=== PATIENT | male | born 1990 | race Caucasian/White ===

== ENCOUNTER 2018-07-10 19:14 | Emergency (ER) | payer OTHER, SELFPAY ==
[2018-07-10 19:46] VITALS: BP 114/75; PULSE 72; RESP 18; TEMP 36.6; O2SAT 100; BMI 21.4
[2018-07-10 21:14] VITALS: BP 113/71; PULSE 77; RESP 16; O2SAT 99
--- NOTE | 2018-07-10 21:35 | ED_ITS ---
HPI - Animal Bite <MARSHA Tan - Last Filed: 07/10/18 22:02> General Chief Complaint: Animal Bite Stated Complaint: dog bite right ankle Time Seen by Provider: 07/10/18 21:03 Source: patient Mode of arrival: ambulatory Limitations: no limitations History of Present Illness HPI narrative: 27-year-old healthy male that is an everyday smoker here for complaint of a dog bite to his right ankle area. 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 He reports he does not know the status of the dog. He states he does not know when his last tetanus was. He denies any other injuries. He stated the incident happened this afternoon. He is ambulatory to the emergency room. No other concerns or complaints at this time. complaint: animal bite Related Data Home Medications Medication Instructions Recorded Confirmed omeprazole magnesium [Prilosec OTC] #0 11/07/17 Previous Rx's Medication Instructions Recorded mupirocin 1 applictn TOP TID #15 gram 07/10/18 Review of Systems <MARSHA Tan - Last Filed: 07/10/18 22:02> Constitutional Denies chills, Denies fever(s), Denies lethargy and Denies weakness Eyes Denies change in vision, Denies eye discharge, Denies irritation and Denies loss of vision ENT Ears, Nose, Mouth, and Throat: Denies change in voice, Denies neck pain and Denies sore throat Cardiovascular Denies chest pain, Denies irregular heart rhythm, Denies lightheadedness, Denies palpitations, Denies dyspnea, Denies dyspnea on exertion and Denies orthopnea Respiratory Denies cough, Denies dyspnea, Denies dyspnea on exertion and Denies wheezing Gastrointestinal Gastrointestinal: Denies abdominal pain, Denies change in bowel habits, Denies diarrhea, Denies nausea and Denies vomiting Genitourinary Denies hematuria, Denies flank pain, Denies urinary incontinence and Denies urinary urgency Musculoskeletal Denies neck pain Comments: Dog bite right ankle Integumentary/Breasts Denies pruritus, Denies erythema, Denies rash and Denies wounds Neurologic Denies confusion, Denies loss of vision and Denies weakness Psychiatric Denies anxiety, Denies confusion, Denies depression, Denies homicidal ideation and Denies suicidal ideation Endocrine Denies palpitations Hematologic/Lymphatic Denies easy bruising Allergic/Immunologic Denies wheezing Exam <MARSHA Tan - Last Filed: 07/10/18 22:02> Initial Vital Signs Initial Vital Signs: Vital Signs Temperature 97.9 F 07/10/18 19:46 Pulse Rate 72 07/10/18 19:46 Respiratory Rate 18 07/10/18 19:46 Blood Pressure 114/75 07/10/18 19:46 Pulse Oximetry 100 07/10/18 19:46 Const General: cooperative and well developed Nutritional Appearance: well nourished Orientation: alert, awake, oriented x3 and not confused [facility] Mouth: oral mucosae normal and moist mucous membranes Eyes Eyelids: eyelids normal Conjunctivae: conjunctivae normal Sclera: sclerae normal Pupils: PERRL EOM: EOM intact bilaterally Resp Effort & Inspection: normal respiratory effort, able to speak in complete sentences, no respiratory distress and no use of accessory muscles Auscultation: clear to auscultation bilaterally, no rales, no rhonchi and no wheezes Cardio Rate: regular rate Rhythm: regular rhythm Heart Sounds: no click, no gallops, no murmurs and no rubs Pulses: normal peripheral pulses Skin General: no rashes or lesions noted, No jaundice and No petechiae Neuro General: alert, oriented x3, gait normal and no focal motor deficits Speech: speech normal Extrem Other: Superficial scrapes over a 2 cm area to the distal lateral right lower leg. Distal sensation is intact. Distal range of motion is intact. Distal pulses intact. No deep punctures seen <Gali Malave DO - Last Filed: 07/11/18 03:03> Initial Vital Signs Initial Vital Signs: Vital Signs Temperature 97.9 F 07/10/18 19:46 Pulse Rate 72 07/10/18 19:46 Respiratory Rate 18 07/10/18 19:46 Blood Pressure 114/75 07/10/18 19:46 Pulse Oximetry 100 07/10/18 19:46 Course <MARSHA Tan - Last Filed: 07/10/18 22:02> Orders Ordered: Discontinued Medications Diphtheria/Tetanus/Acell Pertussis (Adacel) 0.5 ml IM .ONCE ONE Stop: 07/10/18 21:29 Last Admin: 07/10/18 21:45 Dose: 0.5 ml Vital Signs - 8 hr 07/10/18 19:46 07/10/18 21:14 Temperature 97.9 F Pulse Rate 72 77 Respiratory Rate 18 16 Blood Pressure 114/75 Blood Pressure [Right Arm] 113/71 Pulse Oximetry 100 99 <Gali Malave DO - Last Filed: 07/11/18 03:03> Orders Ordered: Discontinued Medications Diphtheria/Tetanus/Acell Pertussis (Adacel) 0.5 ml IM .ONCE ONE Stop: 07/10/18 21:29 Last Admin: 07/10/18 21:45 Dose: 0.5 ml Vital Signs - 8 hr 07/10/18 19:46 07/10/18 21:14 Temperature 97.9 F Pulse Rate 72 77 Respiratory Rate 18 16 Blood Pressure 114/75 Blood Pressure [Right Arm] 113/71 Pulse Oximetry 100 99 MDM - Animal Bite <MARSHA Tan - Last Filed: 07/10/18 22:02> MDM Narrative Medical decision making narrative: Superficial wounds to right ankle area were cleansed and dressed with bacitracin dressing. He is prescribed mupirocin to treat topically until wounds heal. Follow up with primary care provider next week for re-evaluation. Tetanus was updated in the emergency room today. Dress wound daily with a dressing. Return emergency room for any worsening symptoms. Discharge Plan Departure Patient Disposition: Home Clinical Impression: Dog bite Discharge Date/Time: 07/10/18 22:00 Interventions: ED Discharge Assessment Last Done: 07/10/18 22:23 Instructions: DI for Dog Bite Activity Restrictions/Additional Instructions: Superficial wounds to the right ankle area. Wound dressed with antibiotic ointment and dressing. . You are prescribed an antibiotic ointment called mupirocin use as directed. Dress wound daily with dressing until healed. Use antibiotic ointment until healed. Follow up with her primary care provider next week for re-evaluation. Tetanus was updated in the emergency room today. Use [id number] Tylenol or Motrin as needed for any discomfort. For any worsening symptoms return to the emergency room. Prescriptions: New mupirocin 2 % ointment 1 applictn TOP TID Qty: 15 RF: 0 No Action omeprazole magnesium [Prilosec OTC] 20 MG tablet,delayed release (DR/EC) Qty: 0 RF: 0 Referrals: Stephen Oneill MD [Primary Care Provider] - <Gali Malave DO - Last Filed: 07/11/18 03:03> Cosign ED Attending [place] Attestation: I was immediately available in the department for consultation. Documentation has been reviewed. I agree with assessment and plan.
[2018-07-10] MEDS: TET,DIPH,PERTUSS(ACELL),VAC/PF 0.5 ML SYRINGE IM (21:45)
== END 2018-07-10 22:00 | disposition home or self-care (01) ==
PROVIDERS: Emergency Provider Nurse Practitioner Family; Family Provider Family Medicine; PCP Family Medicine
DX: S91.051A Open bite, right ankle, initial encounter (principal); W54.0XXA Bitten by dog, initial encounter
CPT/HCPCS: 90471; 99283; 90715

== ENCOUNTER → 2020-05-13 15:05 | Outpatient (CLI) | payer OTHER, SELFPAY ==
--- NOTE | 2020-05-13 15:07 | DI.RAD.S_ITS ---
PROCEDURE: XR KNEE RT 3V INDICATIONS: Pain TECHNIQUE: 3 views of the knee were acquired. COMPARISON: None. FINDINGS: Bones: No fractures or dislocations. No suspicious bony lesions. Soft tissues: No joint effusion. No suspicious soft tissue calcifications. There may be soft tissue swelling at the ventral margin of the prepatellar soft tissues, but it is unclear from the history whether trauma is present. This could conceivably represent a manifestation of focal cellulitis. Please correlate clinically. IMPRESSION: No trauma found, to the osseous structures. There may be soft tissue swelling at the anterior border of the patella, please correlate clinically. Dictated by: Ravi Teresa M.D. on 05/13/2020 at 16:26 Approved by: Ravi Teresa M.D. on 05/13/2020 at 16:27
== END ==
PROVIDERS: Family Provider Family Medicine; PCP Family Medicine; Referring Provider Family Medicine; Visit Provider Family Medicine
DX: M25.561 Pain in right knee (principal); M22.2X1 Patellofemoral disorders, right knee
CPT/HCPCS: 73562

== ENCOUNTER 2020-12-29 17:03 | Emergency (ER) | payer OTHER, SELFPAY ==
[2020-12-29 17:07] VITALS: PULSE 74; RESP 16; O2SAT 100; BMI 20.7
--- NOTE | 2020-12-29 17:12 | DI.RAD.S_ITS ---
PROCEDURE: XR CHEST 1V INDICATIONS: chest pain TECHNIQUE: One view of the chest was acquired. COMPARISON: [facility], , CHEST 2 VIEW, 04/11/2016, 14:52. FINDINGS: Surgical changes and devices: None. Lungs and pleura: Lungs are clear. No pleural effusions or pneumothorax. Mediastinum: Mediastinal contours appear normal. Heart size is normal. Bones and chest wall: No suspicious bony lesions. Overlying soft tissues appear unremarkable. IMPRESSION: No acute cardiopulmonary abnormalities or focal airspace disease. There are no imaging findings to explain patient's chest pain. Dictated by: Job Sullivan M.D. on 12/29/2020 at 17:41 Approved by: Job Sullivan M.D. on 12/29/2020 at 17:43
--- NOTE | 2020-12-29 17:13 | PC.NURSE ---
Took tums with no relief. Reports some dizziness.
[2020-12-29 17:30] LABS: Add Manual Diff / Slide Review NO; Basophils Absolute Auto 100 /uL (0-100); Basophils Percent Auto 1.3 % (0-2); Eosinophils Absolute Auto 100 /uL (0-450); Eosinophils Percent Auto 1.1 % (2-4); Hematocrit 42.9 % (41-53); Hemoglobin 14.7 g/dL (13.5-17.5); Lymphocytes Absolute Auto 1900 /uL (1100-4500); Lymphocytes Percent Auto 31.5 % (25-40); Mean Corpuscular HGB Conc 34.2 % (30-36); Mean Corpuscular Hemoglobin 29.1 PG (26-34); Mean Corpuscular Volume 85.1 fL (80-100); Monocytes Absolute Auto 400 /uL (0-900); Monocytes Percent Auto 6.8 % (3-14); Neutrophils Absolute Auto 3600 /uL (1500-7000); Neutrophils Percent Auto 59.3 % (50-75); Platelet Count 225 X10^3/uL (150-400); Red Blood Cell Count 5.04 X10^6/uL (4.5-5.9); Red Cell Distribution Width 13.2 % (11.6-14.8); White Blood Cell Count 6.1 X10^3/uL (4.5-11.0)
[2020-12-29 17:37] LABS: Prothrombin Time 10.7 SECONDS (10.1-12.7)
[2020-12-29 17:39] LABS: PTT Partial Thromboplastin Tim 32 SECONDS (26.4-36.2)
[2020-12-29 17:41] LABS: Alanine Aminotransferase 17 IU/L (<50); Albumin 4.7 g/dL (3.5-5.0); Albumin Globulin Ratio 1.6 (1.0-2.8); Alkaline Phosphatase 51 U/L (38-126); Aspartate Aminotransferase 24 IU/L (17-59); BUN Creatinine Ratio 17.1 (6-22); Bilirubin Total 0.4 mg/dL (0.2-1.3); Blood Urea Nitrogen 13 mg/dL (9-20); Calcium 9.4 mg/dL (8.4-10.2); Carbon Dioxide 28 mmol/L (22-32); Chloride 105 mmol/L (98-107); Creatine Kinase 90 U/L (55-170); Estimated Glomerular Filt Rate > 60.0 mL/min (>60); Globulin 2.9 g/dL (1.7-4.1); Glucose 167 mg/dL (70-100); HEMOLYSIS < 15 (0-50); Lipase 85 U/L (23-300); Potassium 3.7 mmol/L (3.4-5.1); Sodium 138 mmol/L (137-145); Total Protein 7.6 g/dL (6.3-8.2)
--- NOTE | 2020-12-29 17:50 | ED.CHESTPAIN ---
HPI - Chest Pain <Layla Peralta PA-C - Last Filed: 12/29/20 20:26> General Chief Complaint: Chest Pain Stated Complaint: chest pain off and on today, lightheaded Time Seen by Provider: 12/29/20 17:11 Source: patient Mode of arrival: Ambulatory Limitations: no limitations History of Present Illness HPI narrative: This is a well-appearing 30-year-old who reports a history of chronic abdominal pains and recent anxiety diagnosis. 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 He states he has actually been having chest pains on and off for short periods of time that feel like a tightness in the center of his chest for the last few months. Nothing seems to make them worse, make them better or bring them on. A couple of days ago he had pain on the left side of his chest that felt more like a dull ache which lasted about half the day. This was concerning to him and today when he started having the tightness in his chest he decided he should probably seek care. Earlier today when the pain started he was also feeling somewhat short of breath although he does not feel short of breath anymore. He also felt a little bit lightheaded. He also felt like his heart was going quickly. He endorses 2 or 3/10 tight chest pain in the center of his chest currently but states it was more painful earlier and it has improved. He states that he has been taking gabapentin for anxiety for the past month and that he was recently prescribed a new anxiety medicine after telemedicine visit but he has not yet picked it up because a prescription just became available. He states that he has ?a high level of stress. He states he has been eating and drinking normally denies any fevers, chills, abdominal pain, flank pain, neck pain, headache, ongoing palpitations, or any other symptoms. MD complaint: chest pain Onset (ago): hour(s) (4) Duration: improved Onset: other (while driving mail truck) Pain location: other (mid chest, tightness) Severity: similar to previous episodes Severity scale (1-10): 2 Quality: tightness Pain radiation: none Relieving factors: nothing and other (has improved with time) Exacerbating factors: nothing Context: new medications (gabapentin for last month) and other (supposed to start another anxiety med) Associated symptoms: dyspnea (brief, resolved) Treatments prior to arrival chest pain: other (tums) Related Data Previous Rx's Medication Instructions Recorded prednisone 20 mg tablet 20 mg PO DAILY #21 tab 07/27/20 diazepam 5 mg tablet 5 mg PO ONCE PRN #4 tab 12/22/20 Allergies Allergy/AdvReac Type Severity Reaction Status Date / Time No Known Drug Allergies Allergy Verified 12/29/20 17:10 Review of Systems <Layla Peralta PA-C - Last Filed: 12/29/20 20:26> Review of Systems Narrative: GENERAL: Denies chills, fatigue, malaise, fever, sweats. HEENT: Denies sinus pain, ear pain, sore throat, difficulty swallowing, dizziness. RESPIRATORY: Denies dyspnea, cough, wheezing, hemoptysis, sputum. CARDIOVASCULAR: Endorses chest pain, palpitations, denies orthopnea, edema, GASTROINTESTINAL: Denies nausea, vomiting, abdominal pain, diarrhea, constipation, melena. : Denies dysuria, frequency, incontinence, hematuria, urinary retention. MUSCULOSKELETAL: denies weakness, joint pain, or bony pain SKIN: Denies rash, skin lesions, or other NEUROLOGIC: Denies weakness, headache, numbness, change in speech, confusion, seizures, incoordination, endorses lightheadedness earlier today associated with his chest pain starting. PSYCHIATRIC: No concerning psychosocial issues. 12 point review of systems is negative except for those stated above ROS Unobtainable: All systems reviewed & are unremarkable except as noted in HPI and below Patient History <Layla Peralta PA-C - Last Filed: 12/29/20 20:26> Medical History Dermatitis Social History Smoking Status: Former smoker Smoking Status: Former smoker alcohol intake frequency: holidays/special occasions only Substance Use Type: does not use Exam <Layla Peralta PA-C - Last Filed: 12/29/20 20:26> Narrative Exam Narrative: GENERAL: 30 year old patient appears stated age. 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 HEAD: Atraumatic. Normocephalic. EYES: Pupils equal round and reactive. Extraocular motions intact. No scleral icterus. No injection or drainage. ENT: Nose without bleeding, purulent drainage. Throat without erythema, tonsillar hypertrophy or exudate. Airway patent. NECK: Trachea midline. Non tender CARDIOVASCULAR: Regular rate and rhythm without murmurs, gallops, or rubs. RESPIRATORY: Clear to auscultation. Breath sounds equal bilaterally. No wheezes, rales, or rhonchi. GASTROINTESTINAL: Abdomen soft, non-tender, nondistended. EXTREMITIES: No edema or joint tenderness. Abrasions to knuckles of both hands. BACK: Nontender without deformity or crepitance. No flank tenderness. NEURO: AOx3. SKIN: No rash or erythema of visible areas Initial Vital Signs Initial Vital Signs: Vital Signs Pulse Rate 74 12/29/20 17:07 Respiratory Rate 16 12/29/20 17:07 Pulse Oximetry 100 12/29/20 17:07 <Dong Asencio DO - Last Filed: 01/02/21 18:05> Initial Vital Signs Initial Vital Signs: Vital Signs Pulse Rate 74 12/29/20 17:07 Respiratory Rate 16 12/29/20 17:07 Pulse Oximetry 100 12/29/20 17:07 Scores <Layla Peralta PA-C - Last Filed: 12/29/20 20:26> GCS Srinivasan coma scale eye opening: Spontaneous Pilot coma scale verbal response: Orientated Srinivasan coma scale motor response: Obey commands Srinivasan coma scale total score: 15 HEART Score Heart Score history: Slightly Suspicious Heart Score EKG: Normal Heart Score Age: < 45 years old Heart Score risk factors: No known risk factors Heart Score troponin: < or = to normal limit Heart Score Total: 0 Course <Layla Peralta PA-C - Last Filed: 12/29/20 20:26> Course Course Narrative: Patient has unremarkable labs including cardiac enzymes. His pain started around 1 this afternoon so had been at least 3 hours. He also had been having pain 2 days prior that lasted half a day. I would expect his troponin to be elevated if this were related to a cardiac muscle damage issue. However will sign out AMA as he is unable to stay for return of 2nd troponin lab result due to family committments 18:49 Orders Ordered: Discontinued Medications Aspirin (Aspirin 81 Mg Chew Tab) 324 mg PO NOW ONE Stop: 12/29/20 17:14 Last Admin: 12/29/20 17:56 Dose: 324 mg Documented by: YAZ Vital Signs Vital signs: Vital Signs - 8 hr 12/29/20 17:07 12/29/20 18:00 12/29/20 18:49 Pulse Rate 74 75 71 Respiratory Rate 16 16 20 Blood Pressure 129/74 117/73 Pulse Oximetry 100 98 97 <Dong Asencio DO - Last Filed: 01/02/21 18:05> Orders Ordered: Discontinued Medications Aspirin (Aspirin 81 Mg Chew Tab) 324 mg PO NOW ONE Stop: 12/29/20 17:14 Last Admin: 12/29/20 17:56 Dose: 324 mg Documented by: YAZ Vital Signs Vital signs: Vital Signs - 8 hr 12/29/20 17:07 12/29/20 18:00 12/29/20 18:49 Pulse Rate 74 75 71 Respiratory Rate 16 16 20 Blood Pressure 129/74 117/73 Pulse Oximetry 100 98 97 MDM - Chest Pain <Layla Peralta PA-C - Last Filed: 12/29/20 20:26> Differential Diagnosis Differential diagnosis: Likely stable angina, unstable angina pectoris, atypical chest pain, costochondritis, chest pain, biliary colic and other (Anxiety, dehydration) Medical Records Data Attestation: I reviewed the patient's medical records. Lab Data Attestation: I reviewed the patient's lab results. Result diagrams: 12/29/20 17:25 12/29/20 17:25 Labs: Lab Results 12/29/20 12/29/20 12/29/20 Range/Units 17:25 17:25 17:25 WBC 6.1 (4.5-11.0) X10^3/uL RBC 5.04 (4.5-5.9) X10^6/uL Hgb 14.7 (13.5-17.5) g/dL Hct 42.9 (41-53) % MCV 85.1 (80-100) fL MCH 29.1 (26-34) PG MCHC 34.2 (30-36) % RDW 13.2 (11.6-14.8) % Plt Count 225 (150-400) X10^3/uL Neut % (Auto) 59.3 (50-75) % Lymph % (Auto) 31.5 (25-40) % [place] % (Auto) 6.8 (3-14) % Eos % (Auto) 1.1 L (2-4) % Baso % (Auto) 1.3 (0-2) % Neut # (Auto) 3600 (4044-2584) /uL Lymph # (Auto) 1900 (5836-0256) /uL [place] # (Auto) 400 (0-900) /uL Eos # (Auto) 100 (0-450) /uL Baso # (Auto) 100 (0-100) /uL PT 10.7 (10.1-12.7) SECONDS INR 1.0 (0.9-1.3) APTT 32 (26.4-36.2) SECONDS Sodium 138 (137-145) mmol/L Potassium 3.7 (3.4-5.1) mmol/L Chloride 105 (98-107) mmol/L Carbon Dioxide 28 (22-32) mmol/L BUN 13 (9-20) mg/dL Creatinine 0.76 (0.66-1.25) mg/dL Estimated GFR > 60.0 (>60) mL/min BUN/Creatinine Ratio 17.1 (6-22) Glucose 167 H (70-100) mg/dL Hemoglobin A1c (4.0-6.0) % Calcium 9.4 (8.4-10.2) mg/dL Total Bilirubin 0.4 (0.2-1.3) mg/dL AST 24 (17-59) IU/L ALT 17 (<50) IU/L Alkaline Phosphatase 51 (38-126) U/L Total Creatine Kinase 90 (55-170) U/L CK-MB (CK-2) TNP CK-MB (CK-2) Rel Index TNP Troponin I < 0.012 (0.01-0.034) ng/mL Total Protein 7.6 (6.3-8.2) g/dL Albumin 4.7 (3.5-5.0) g/dL Globulin 2.9 (1.7-4.1) g/dL Albumin/Globulin Ratio 1.6 (1.0-2.8) Lipase 85 (23-300) U/L 03/11/21 03/11/21 Range/Units 17:25 19:26 WBC (4.5-11.0) X10^3/uL RBC (4.5-5.9) X10^6/uL Hgb (13.5-17.5) g/dL Hct (41-53) % MCV (80-100) fL MCH (26-34) PG MCHC (30-36) % RDW (11.6-14.8) % Plt Count (150-400) X10^3/uL Neut % (Auto) (50-75) % Lymph % (Auto) (25-40) % [place] % (Auto) (3-14) % Eos % (Auto) (2-4) % Baso % (Auto) (0-2) % Neut # (Auto) (4833-5008) /uL Lymph # (Auto) (7003-0003) /uL [place] # (Auto) (0-900) /uL Eos # (Auto) (0-450) /uL Baso # (Auto) (0-100) /uL PT (10.1-12.7) SECONDS INR (0.9-1.3) APTT (26.4-36.2) SECONDS Sodium (137-145) mmol/L Potassium (3.4-5.1) mmol/L Chloride (98-107) mmol/L Carbon Dioxide (22-32) mmol/L BUN (9-20) mg/dL Creatinine (0.66-1.25) mg/dL Estimated GFR (>60) mL/min BUN/Creatinine Ratio (6-22) Glucose (70-100) mg/dL Hemoglobin A1c 5.2 (4.0-6.0) % Calcium (8.4-10.2) mg/dL Total Bilirubin (0.2-1.3) mg/dL AST (17-59) IU/L ALT (<50) IU/L Alkaline Phosphatase (38-126) U/L Total Creatine Kinase 78 (55-170) U/L CK-MB (CK-2) TNP CK-MB (CK-2) Rel Index TNP Troponin I < 0.012 (0.01-0.034) ng/mL Total Protein (6.3-8.2) g/dL Albumin (3.5-5.0) g/dL Globulin (1.7-4.1) g/dL Albumin/Globulin Ratio (1.0-2.8) Lipase (23-300) U/L Imaging Data Chest x-ray: Attestation: I personally reviewed and interpreted this imaging study as follows: Radiologist's Impression: [address] [id number] ReportSigned Patient: [facility]#: [id number]: 1990Acct:[id number]/Sex: te of Service: 12/29/20Loc: EDAccession Number: [id number] Procedure: XR chest 1V Ordering Provider: Layla Peralta P.A-C PROCEDURE: XR CHEST 1V INDICATIONS: chest pain TECHNIQUE: One view of the chest was acquired. COMPARISON: [facility], CHEST 2 VIEW, 04/11/2016, 14:52. FINDINGS: Surgical changes and devices: None. Lungs and pleura: Lungs are clear. No pleural effusions or pneumothorax. Mediastinum: Mediastinal contours appear normal. Heart size is normal. Bones and chest wall: No suspicious bony lesions. Overlying soft tissues appear unremarkable. IMPRESSION: No acute cardiopulmonary abnormalities or focal airspace disease. There are no imaging findings to explain patient's chest pain. Dictated by: Job Sullivan M.D. on 12/29/2020 at 17:41 Approved by: Job Sullivan M.D. on 12/29/2020 at 17:43 ECG Data Attestation: I personally reviewed and interpreted this ECG as follows: Interpretation: NSR Rate 68, AK interval 150 QRS 108 QT 390 P axis 76 R axis 58 T axis 69 Core Measures Measure exclusions: not indicated MDM Narrative Medical decision making narrative: This is a well-appearing slightly anxious 30-year-old who presents with concern for chest pain. Also endorses some feeling lightheaded earlier when the pain started around 1:00 p.m. this afternoon as well as a little bit shortness of breath at that time also endorses chronic frequent intermittent chest pains over the past few months. History is notable for recent diagnosis of anxiety started on gabapentin for this 1 month ago and also recently just prescribed to new anxiety medications including propranolol which he has not yet started to take. Unremarkable exam and EKG, chest x-ray, initial labs are also unremarkable including troponin CK CK-MB. I have fairly low suspicion for cardiac or pulmonary etiology of this patient although he does endorse ongoing low-level chest pain at time of presentation. As he was unwilling to stay for return of 2nd troponin draw lab results he was discharged Against Medical Advice. The repeat troponin returned unremarkable (returned after pt left AMA). Do suspect anxiety in this patient with recent anxiety diagnosis who is not yet taking the prescribed medications and who has been dealing with intermittent chest pains now for a few months. He was discharged left against medical advice advised regarding follow-up, return precautions all questions answered <Dong Asencio DO - Last Filed: 01/02/21 18:05> Lab Data Labs: Lab Results 12/29/20 12/29/20 12/29/20 Range/Units 17:25 17:25 17:25 WBC 6.1 (4.5-11.0) X10^3/uL RBC 5.04 (4.5-5.9) X10^6/uL Hgb 14.7 (13.5-17.5) g/dL Hct 42.9 (41-53) % MCV 85.1 (80-100) fL MCH 29.1 (26-34) PG MCHC 34.2 (30-36) % RDW 13.2 (11.6-14.8) % Plt Count 225 (150-400) X10^3/uL Neut % (Auto) 59.3 (50-75) % Lymph % (Auto) 31.5 (25-40) % [place] % (Auto) 6.8 (3-14) % Eos % (Auto) 1.1 L (2-4) % Baso % (Auto) 1.3 (0-2) % Neut # (Auto) 3600 (5926-0995) /uL Lymph # (Auto) 1900 (7151-7092) /uL [place] # (Auto) 400 (0-900) /uL Eos # (Auto) 100 (0-450) /uL Baso # (Auto) 100 (0-100) /uL PT 10.7 (10.1-12.7) SECONDS INR 1.0 (0.9-1.3) APTT 32 (26.4-36.2) SECONDS Sodium 138 (137-145) mmol/L Potassium 3.7 (3.4-5.1) mmol/L Chloride 105 (98-107) mmol/L Carbon Dioxide 28 (22-32) mmol/L BUN 13 (9-20) mg/dL Creatinine 0.76 (0.66-1.25) mg/dL Estimated GFR > 60.0 (>60) mL/min BUN/Creatinine Ratio 17.1 (6-22) Glucose 167 H (70-100) mg/dL Hemoglobin A1c (4.0-6.0) % Calcium 9.4 (8.4-10.2) mg/dL Total Bilirubin 0.4 (0.2-1.3) mg/dL AST 24 (17-59) IU/L ALT 17 (<50) IU/L Alkaline Phosphatase 51 (38-126) U/L Total Creatine Kinase 90 (55-170) U/L CK-MB (CK-2) TNP CK-MB (CK-2) Rel Index TNP Troponin I < 0.012 (0.01-0.034) ng/mL Total Protein 7.6 (6.3-8.2) g/dL Albumin 4.7 (3.5-5.0) g/dL Globulin 2.9 (1.7-4.1) g/dL Albumin/Globulin Ratio 1.6 (1.0-2.8) Lipase 85 (23-300) U/L 12/29/20 12/29/20 Range/Units 17:25 19:26 WBC (4.5-11.0) X10^3/uL RBC (4.5-5.9) X10^6/uL Hgb (13.5-17.5) g/dL Hct (41-53) % MCV (80-100) fL MCH (26-34) PG MCHC (30-36) % RDW (11.6-14.8) % Plt Count (150-400) X10^3/uL Neut % (Auto) (50-75) % Lymph % (Auto) (25-40) % [place] % (Auto) (3-14) % Eos % (Auto) (2-4) % Baso % (Auto) (0-2) % Neut # (Auto) (3199-7898) /uL Lymph # (Auto) (9118-8425) /uL [place] # (Auto) (0-900) /uL Eos # (Auto) (0-450) /uL Baso # (Auto) (0-100) /uL PT (10.1-12.7) SECONDS INR (0.9-1.3) APTT (26.4-36.2) SECONDS Sodium (137-145) mmol/L Potassium (3.4-5.1) mmol/L Chloride (98-107) mmol/L Carbon Dioxide (22-32) mmol/L BUN (9-20) mg/dL Creatinine (0.66-1.25) mg/dL Estimated GFR (>60) mL/min BUN/Creatinine Ratio (6-22) Glucose (70-100) mg/dL Hemoglobin A1c 5.2 (4.0-6.0) % Calcium (8.4-10.2) mg/dL Total Bilirubin (0.2-1.3) mg/dL AST (17-59) IU/L ALT (<50) IU/L Alkaline Phosphatase (38-126) U/L Total Creatine Kinase 78 (55-170) U/L CK-MB (CK-2) TNP CK-MB (CK-2) Rel Index TNP Troponin I < 0.012 (0.01-0.034) ng/mL Total Protein (6.3-8.2) g/dL Albumin (3.5-5.0) g/dL Globulin (1.7-4.1) g/dL Albumin/Globulin Ratio (1.0-2.8) Lipase (23-300) U/L Discharge Plan Departure Patient Disposition: Left Against Medical Advice Clinical Impression: Left against medical advice, Anxiety Chest pain Qualifiers: Chest pain type: unspecified Qualified Code(s): R07.9 - Chest pain, unspecified Instructions: DI for Atypical Chest Pain, DI for Anxiety -- Adult Activity Restrictions/Additional Instructions: Thank you for letting us be part of your care in the emergency department today. Your EKG today was looking okay and your initial labs also looked okay you did have a slightly elevated blood sugar. In order to fully evaluate for for potential causes of cardiac or heart related chest pain we do need to recheck your cardiac enzymes, unfortunately you elected to leave the emergency department prior to the results of this 2nd cardiac level being checked. So we did signing out against medical advice today. 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 Otherwise please continue your other medications as usual. If you do have new or concerning symptoms do not hesitate to get re-evaluated. Please follow-up with your primary care provider in the next 1-2 days for recheck and further evaluation. Prescriptions: No Action prednisone 20 mg tablet 20 mg PO DAILY Qty: 21 RF: 0 diazepam [Valium] 5 mg tablet 5 mg PO ONCE PRN (Reason: anxiety) Qty: 4 RF: 0 Referrals: Stephen Oneill MD [Primary Care Provider] - Stand Alone Forms: Against Medical Advice, Work Release Note <Dong Asencio DO - Last Filed: 01/02/21 18:05> Cosign ED Attending Cosignature Attestation: I was immediately available in the department for consultation. This documentation has been reviewed and I agree with assessment and plan. Supervised by Dong Asencio DO
[2020-12-29 17:53] LABS: Troponin I < 0.012 ng/mL (0.01-0.034)
[2020-12-29] MEDS: ASPIRIN 81 MG CHEW TAB 324 MG PO (17:56)
[2020-12-29 18:00] VITALS: BP 129/74; PULSE 75; RESP 16; O2SAT 98
[2020-12-29 18:49] VITALS: BP 117/73; PULSE 71; RESP 20; O2SAT 97
[2020-12-29 18:59] LABS: Hemoglobin A1C% w Est Avg Glu 5.2 % (4.0-6.0)
[2020-12-29 19:41] LABS: Creatine Kinase 78 U/L (55-170)
[2020-12-29 19:53] LABS: Troponin I < 0.012 ng/mL (0.01-0.034)
== END 2020-12-29 19:41 | disposition left against medical advice (07) ==
PROVIDERS: Emergency Provider Student in an Organized Health Care Education/Training Program; Family Provider Family Medicine; PCP Family Medicine
DX: R07.9 Chest pain, unspecified (principal); F41.9 Anxiety disorder, unspecified
CPT/HCPCS: 36415; 71045; 80053; 82550; 83036; 83690; 84484; 85025; 85610; 85730; 93005; 99281; 99284

== ENCOUNTER 2021-01-19 09:05 | Emergency (ER) | payer OTHER, SELFPAY ==
[2021-01-19 09:05] VITALS: BP 165/98; PULSE 105; RESP 20; TEMP 37.1; O2SAT 100
--- NOTE | 2021-01-19 09:18 | ED_ITS ---
HPI - General Adult General Chief complaint: Anxiety Stated complaint: PANIC ATTACK Time Seen by Provider: 01/19/21 09:06 Source: patient Mode of arrival: Ambulatory Limitations: no limitations History of Present Illness HPI narrative: Patient is a 30-year-old male with a known history of anxiety/panic attacks. He has been seen by his primary doctor in the past for these. He does have an appointment scheduled with a mental health provider in ?2 weeks?. During his last visit with his primary doctor he was given a prescription for gabapentin. Apparently this has worked well for him in the past for his anxiety and also other issues that he has been having. He also has a prescription for propanolol. He also had a prescription for clonazepam. He took 1 of these last evening any states that it makes him angry. He has had this type of reaction to these medications in the past. This morning he was at work and he started feel like his heart was beating fast. He did take 1 of his propanolol that he had at home and this may have improving somewhat. He contact his primary doctor's office who sent him to the walk-in clinic who subsequently sent him here to the emergency department. Related Data Previous Rx's Medication Instructions Recorded prednisone 20 mg tablet 20 mg PO DAILY #21 tab 07/27/20 diazepam 5 mg tablet 5 mg PO ONCE PRN #4 tab 12/22/20 gabapentin 300 mg capsule 300 mg PO TID #60 cap 01/16/21 clonazepam 1 mg tablet 1 mg PO BID #28 tab 01/18/21 Allergies Allergy/AdvReac Type Severity Reaction Status Date / Time No Known Drug Allergies Allergy Verified 12/29/20 17:10 Review of Systems Constitutional Constitutional: Denies fever(s) and Denies headache(s) ENT Ears, Nose, Mouth, and Throat: Denies vertigo, Denies headache(s) and Reports disequilibrium Cardiovascular Cardiovascular: Denies chest pain, Reports rapid heart rate and Reports dyspnea Respiratory Respiratory: Denies cough and Reports dyspnea Gastrointestinal Gastrointestinal: Denies abdominal pain, Denies nausea and Denies vomiting Genitourinary Genitourinary: Denies dysuria Genitourinary: Denies dysuria Musculoskeletal Musculoskeletal: Denies arthralgias and Denies myalgias Integumentary/Breasts Skin/Breast: Denies rash Neurologic Neurologic: Denies vertigo, Denies headache(s) and Reports disequilibrium Psychiatric Psychiatric: Reports anxiety, Denies homicidal ideation and Denies suicidal ideation Hematologic/Lymphatic On Anticoagulants: No Allergic/Immunologic Allergic/Immunologic: Denies urticaria Patient History Medical History Anxiety Dermatitis Social History Smoking Status: Former smoker Smoking Status: Former smoker alcohol intake frequency: holidays/special occasions only Substance Use Type: does not use Exam Initial Vital Signs Initial Vital Signs: Vital Signs Temperature 98.8 F 01/19/21 09:05 Pulse Rate 105 H 01/19/21 09:05 Respiratory Rate 20 01/19/21 09:05 Blood Pressure 165/98 H 01/19/21 09:05 Pulse Oximetry 100 01/19/21 09:05 Const General: cooperative, comfortable and well developed Limitations: mental status not altered HENMT Head: normal to inspection and normocephalic Resp Effort & Inspection: normal respiratory effort Auscultation: clear to auscultation bilaterally Cardio Rate: tachycardic Rhythm: regular rhythm GI Inspection: non-distended Skin Lesions: no lesions Rashes: no rashes Neuro General: patient alert, patient awake and patient oriented x3 Cognition: normal cognition Speech: speech normal Extrem General: normal to inspection and capillary refill normal Psych Appearance: grossly normal and well kempt Course Orders Ordered: Discontinued Medications Lorazepam (Lorazepam 0.5 Mg Tablet) 1 mg PO NOW ONE Stop: 01/19/21 09:19 Last Admin: 01/19/21 09:29 Dose: 1 mg Documented by: TALISHA Vital Signs Vital signs: Vital Signs - 8 hr 01/19/21 09:05 Temperature 98.8 F Pulse Rate 105 H Respiratory Rate 20 Blood Pressure 165/98 H Pulse Oximetry 100 Medical Decision Making [facility] Narrative Medical decision making narrative: Patient here with signs and symptoms and physical exam of a panic attack. He was given 1 Ativan. Informed him that he should stop taking the clonazepam since this seems to have caused him problems the last 2 times that he is taking a. He is already scheduled appointment with mental health. Informed him he needed to talk with his primary doctor about further long-term medication. He was given return precautions. Discharge Plan Departure Patient Disposition: Home Clinical Impression: Anxiety Instructions: DI for Anxiety -- Adult Activity Restrictions/Additional Instructions: I recommend that you stop taking the clonazepam/Klonopin as it seems the past 2 times you have taken this medication it has caused worsening of your symptoms. Keep all of your scheduled medical appointments especially the appointment with your mental health provider. Contact your primary doctor's office to discuss any medication changes. Return to the emergency department for any new or worsening symptoms Prescriptions: No Action prednisone 20 mg tablet 20 mg PO DAILY Qty: 21 RF: 0 diazepam [Valium] 5 mg tablet 5 mg PO ONCE PRN (Reason: anxiety) Qty: 4 RF: 0 clonazepam [Klonopin] 1 mg tablet 1 mg PO BID Qty: 28 RF: 0 gabapentin 300 mg capsule 300 mg PO TID Qty: 60 RF: 0 Referrals: Tommy Herrera MD [Primary Care Provider] -
[2021-01-19] MEDS: LORazepam 0.5 MG TABLET 1 MG PO (09:29)
[2021-01-19 10:20] VITALS: BP 138/91; PULSE 96; RESP 18; O2SAT 97
== END 2021-01-19 10:21 | disposition home or self-care (01) ==
PROVIDERS: Emergency Provider Emergency Medicine; Family Provider Family Medicine; PCP Family Medicine
DX: F41.9 Anxiety disorder, unspecified (principal)
CPT/HCPCS: 99283

== ENCOUNTER 2021-01-20 21:59 | Emergency (ER) | payer OTHER, SELFPAY ==
[2021-01-20 22:00] VITALS: BP 122/81; PULSE 84; RESP 16; O2SAT 99; BMI 21.5
[2021-01-20 22:19] LABS: Add Manual Diff / Slide Review NO; Basophils Absolute Auto 100 /uL (0-100); Basophils Percent Auto 1.2 % (0-2); Eosinophils Absolute Auto 200 /uL (0-450); Eosinophils Percent Auto 4.2 % (2-4); Hematocrit 41.1 % (41-53); Hemoglobin 13.8 g/dL (13.5-17.5); Lymphocytes Absolute Auto 2100 /uL (1100-4500); Lymphocytes Percent Auto 43.4 % (25-40); Mean Corpuscular HGB Conc 33.5 % (30-36); Mean Corpuscular Hemoglobin 28.8 PG (26-34); Monocytes Absolute Auto 400 /uL (0-900); Monocytes Percent Auto 8.1 % (3-14); Neutrophils Absolute Auto 2100 /uL (1500-7000); Neutrophils Percent Auto 43.1 % (50-75); Platelet Count 239 X10^3/uL (150-400); Red Blood Cell Count 4.79 X10^6/uL (4.5-5.9); Red Cell Distribution Width 13.4 % (11.6-14.8); White Blood Cell Count 4.8 X10^3/uL (4.5-11.0)
--- NOTE | 2021-01-20 22:19 | PC.NURSE ---
APD in RM with Pt. Pt is calm and lying on gurney
[2021-01-20 22:30] VITALS: BP 120/68; PULSE 60; RESP 16; O2SAT 97
--- NOTE | 2021-01-20 22:33 | PC.NURSE ---
Pt using personal phone in room to contact family
[2021-01-20 22:39] LABS: Acetaminophen < 10 ug/mL (10-30); Alanine Aminotransferase 13 IU/L (<50); Albumin 4.3 g/dL (3.5-5.0); Albumin Globulin Ratio 1.5 (1.0-2.8); Alkaline Phosphatase 45 U/L (38-126); Aspartate Aminotransferase 25 IU/L (17-59); BUN Creatinine Ratio 18.3 (6-22); Bilirubin Total 0.2 mg/dL (0.2-1.3); Blood Urea Nitrogen 13 mg/dL (9-20); Calcium 8.9 mg/dL (8.4-10.2); Carbon Dioxide 28 mmol/L (22-32); Chloride 105 mmol/L (98-107); Estimated Glomerular Filt Rate > 60.0 mL/min (>60); Ethanol (ETOH) < 10 mg/dL; Globulin 2.8 g/dL (1.7-4.1); Glucose 112 mg/dL (70-100); HEMOLYSIS < 15 (0-50); Potassium 3.6 mmol/L (3.4-5.1); Salicylate < 1.0 mg/dL (<20); Sodium 139 mmol/L (137-145); Total Protein 7.1 g/dL (6.3-8.2)
[2021-01-20 23:21] LABS: Free T4, Direct Thyroxine 1.28 ng/dL (0.78-2.19)
[2021-01-20 23:35] LABS: Thyroid Stimulating Hormone 1.68 uIU/mL (0.47-4.68)
[2021-01-21] VITALS (16 sets, daily range): BP systolic 122–126; BP diastolic 67–71; PULSE 55–70; RESP 12–20; TEMP 36.7–36.8; O2SAT 94–98
--- NOTE | 2021-01-21 00:11 | ED.PSYCH ---
HPI - Psych <Karuna Musa, - Last Filed: 01/22/21 17:49> General Chief Complaint: Psychiatric Symptoms Stated Complaint: FERNANDO-SI Time Seen by Provider: 01/21/21 00:10 Source: patient and police Mode of arrival: Ambulatory Limitations: no limitations History of Present Illness HPI Narrative: This is a 30-year-old male who states that he ingested 6-8 tablets Valium earlier this evening. Patient states that he took it just to sleep. He denies any intent to harm himself or kill himself. He denies any current psychiatric issues. He denies any intent to harm others. He states he was just trying to go to sleep. He states he researched it and saw that would just make him very sleepy but should not kill him. He denies any other echo ingestions. He denies any tobacco, alcohol or illicit use. Patient states that he is allergic to clonazepam and had a negative reaction to it and had his prescription dry for diazepam for anxiety. He later states he has been seeing someone for anxiety. Patient's brother is present in the room after our discussion the brother states that he sent a text message to him saying goodbye. Patient also sent a text to their sister that told him that he was going [place] without any other additional information. He had made other statements that were suspicious for a thought that he may kill himself. His brother states that he has talked about suicidal thoughts in the past but he has never seen him in this situation where he has attempted to harm himself. He is unsure if he needs involuntary placement but he feels he may benefit from psychiatric placement. He relates that there are multiple stressors in current familial relationships. He does state that the patient seemed much more comfortable when he related that the patient's children for currently with their grandparents. Related Data Previous Rx's Medication Instructions Recorded diazepam 5 mg tablet 2.5 mg PO BID PRN #15 tab 01/20/21 Allergies Allergy/AdvReac Type Severity Reaction Status Date / Time clonazepam AdvReac Severe I flew Verified 01/20/21 13:04 into a rage Review of Systems <Karuna Musa DO - Last Filed: 01/22/21 17:49> Review of Systems ROS Unobtainable: All systems reviewed & are unremarkable except as noted in HPI and below Patient History <Karuna Musa DO - Last Filed: 01/22/21 17:49> Medical History Anxiety Dermatitis Social History Smoking Status: Former smoker Smoking Status: Former smoker alcohol intake frequency: holidays/special occasions only Substance Use Type: does not use Exam <Karuna Musa DO - Last Filed: 01/22/21 17:49> Narrative Exam Narrative: GEN: well nourished, well appearing male, alert and oriented, patient appears to be in mild distress. Patient appears sleepy. Patient laying in bed. HEENT: Atraumatic, pupils are equal round reactive to light, extraocular movements are intact, nares are clear, TMs are clear with no fluid, there is no conjunctival pallor. Throat is clear without any exudates, erythema, tonsillar enlargement or uvular deviation HEART: Regular rate and rhythm without murmur, clicks, rubs. Pulses equal bilateral lower extremity LUNGS:Lungs clear to auscultation, no wheezes, rales, crackles, chest moves symmetrically ABD:bowel sounds normal, soft, non-tender, no guarding, rebound, rigidity, no masses noted, no hepatosplenomegaly :No CVA tenderness MSCL: Non-tender, full range of motion, gait not tested. NEURO:CN 2-12 intact, sensation normal Initial Vital Signs Initial Vital Signs: Vital Signs Pulse Rate 84 01/20/21 22:00 Respiratory Rate 16 01/20/21 22:00 Blood Pressure 122/81 01/20/21 22:00 Pulse Oximetry 99 01/20/21 22:00 <Gali Malave DO - Last Filed: 01/21/21 17:18> Initial Vital Signs Initial Vital Signs: Vital Signs Pulse Rate 84 01/20/21 22:00 Respiratory Rate 16 01/20/21 22:00 Blood Pressure 122/81 01/20/21 22:00 Pulse Oximetry 99 01/20/21 22:00 Scores <DO Selin Orlando Last Filed: 01/22/21 17:49> GCS Roxie coma scale eye opening: Spontaneous Roxie coma scale verbal response: Orientated Roxie coma scale motor response: Obey commands Roxie coma scale total score: 15 Course <Karuna Musa DO - Last Filed: 01/22/21 17:49> Orders Ordered: Discontinued Medications Acetaminophen (Acetaminophen 325 Mg Tablet) 975 mg PO NOW ONE Stop: 01/21/21 05:53 Last Admin: 01/21/21 05:56 Dose: 975 mg Documented by: KGALLAG Vital Signs Vital signs: Vital Signs - 8 hr 01/21/21 13:00 01/21/21 14:03 Temperature 98.2 F Pulse Rate 63 Respiratory Rate 19 18 Blood Pressure 122/71 Pulse Oximetry 97 <Gali Malave DO - Last Filed: 01/21/21 17:18> Orders Ordered: Discontinued Medications Acetaminophen (Acetaminophen 325 Mg Tablet) 975 mg PO NOW ONE Stop: 01/21/21 05:53 Last Admin: 01/21/21 05:56 Dose: 975 mg Documented by: KGALLAG Vital Signs Vital signs: Vital Signs - 8 hr 01/21/21 13:00 01/21/21 14:03 Temperature 98.2 F Pulse Rate 63 Respiratory Rate 19 18 Blood Pressure 122/71 Pulse Oximetry 97 MDM - Psych <Karuna Musa DO - Last Filed: 01/22/21 17:49> Lab Data Attestation: I reviewed the patient's lab results. Result diagrams: 01/20/21 22:05 01/20/21 22:05 Labs: Lab Results 01/20/21 01/20/21 01/20/21 Range/Units 22:05 22:05 22:05 WBC 4.8 (4.5-11.0) X10^3/uL RBC 4.79 (4.5-5.9) X10^6/uL Hgb 13.8 (13.5-17.5) g/dL Hct 41.1 (41-53) % MCV 86.0 (80-100) fL MCH 28.8 (26-34) PG MCHC 33.5 (30-36) % RDW 13.4 (11.6-14.8) % Plt Count 239 (150-400) X10^3/uL Neut % (Auto) 43.1 L (50-75) % Lymph % (Auto) 43.4 H (25-40) % [place] % (Auto) 8.1 (3-14) % Eos % (Auto) 4.2 H (2-4) % Baso % (Auto) 1.2 (0-2) % Neut # (Auto) 2100 (5999-6444) /uL Lymph # (Auto) 2100 (0965-2942) /uL [place] # (Auto) 400 (0-900) /uL Eos # (Auto) 200 (0-450) /uL Baso # (Auto) 100 (0-100) /uL Sodium 139 (137-145) mmol/L Potassium 3.6 (3.4-5.1) mmol/L Chloride 105 (98-107) mmol/L Carbon Dioxide 28 (22-32) mmol/L BUN 13 (9-20) mg/dL Creatinine 0.71 (0.66-1.25) mg/dL Estimated GFR > 60.0 (>60) mL/min BUN/Creatinine Ratio 18.3 (6-22) Glucose 112 H (70-100) mg/dL Calcium 8.9 (8.4-10.2) mg/dL Total Bilirubin 0.2 (0.2-1.3) mg/dL AST 25 (17-59) IU/L ALT 13 (<50) IU/L Alkaline Phosphatase 45 (38-126) U/L Total Protein 7.1 (6.3-8.2) g/dL Albumin 4.3 (3.5-5.0) g/dL Globulin 2.8 (1.7-4.1) g/dL Albumin/Globulin Ratio 1.5 (1.0-2.8) TSH 1.68 (0.47-4.68) uIU/mL Free T4 1.28 (0.78-2.19) ng/dL Salicylates < 1.0 (<20) mg/dL U Opiates 300ng/mL cut (Negative) Ur Oxycodone Screen (Negative) Urine Methadone Screen (Negative) Acetaminophen < 10 L (10-30) ug/mL Ur Barbiturates Screen (Negative) U Tricyclic Antidepress (Negative) Ur Phencyclidine Scrn (Negative) Ur Amphetamines Screen (Negative) U Methamphetamines Scrn (Negative) Ur MDMA Scrn (Ecstasy) (Negative) U Benzodiazepines Scrn (Negative) Urine Cocaine Screen (Negative) U Marijuana (THC) Screen (Negative) Ethyl Alcohol < 10 ( - 10) mg/dL SARS-CoV-2 (PCR) (Negative) 01/21/21 01/21/21 Range/Units 00:05 00:20 WBC (4.5-11.0) X10^3/uL RBC (4.5-5.9) X10^6/uL Hgb (13.5-17.5) g/dL Hct (41-53) % MCV (80-100) fL MCH (26-34) PG MCHC (30-36) % RDW (11.6-14.8) % Plt Count (150-400) X10^3/uL Neut % (Auto) (50-75) % Lymph % (Auto) (25-40) % [place] % (Auto) (3-14) % Eos % (Auto) (2-4) % Baso % (Auto) (0-2) % Neut # (Auto) (7011-3445) /uL Lymph # (Auto) (9527-3006) /uL [place] # (Auto) (0-900) /uL Eos # (Auto) (0-450) /uL Baso # (Auto) (0-100) /uL Sodium (137-145) mmol/L Potassium (3.4-5.1) mmol/L Chloride (98-107) mmol/L Carbon Dioxide (22-32) mmol/L BUN (9-20) mg/dL Creatinine (0.66-1.25) mg/dL Estimated GFR (>60) mL/min BUN/Creatinine Ratio (6-22) Glucose (70-100) mg/dL Calcium (8.4-10.2) mg/dL Total Bilirubin (0.2-1.3) mg/dL AST (17-59) IU/L ALT (<50) IU/L Alkaline Phosphatase (38-126) U/L Total Protein (6.3-8.2) g/dL Albumin (3.5-5.0) g/dL Globulin (1.7-4.1) g/dL Albumin/Globulin Ratio (1.0-2.8) TSH (0.47-4.68) uIU/mL Free T4 (0.78-2.19) ng/dL Salicylates (<20) mg/dL U Opiates 300ng/mL cut Negative (Negative) Ur Oxycodone Screen Negative (Negative) Urine Methadone Screen Negative (Negative) Acetaminophen (10-30) ug/mL Ur Barbiturates Screen Negative (Negative) U Tricyclic Antidepress Negative (Negative) Ur Phencyclidine Scrn Negative (Negative) Ur Amphetamines Screen Negative (Negative) U Methamphetamines Scrn Negative (Negative) Ur MDMA Scrn (Ecstasy) Negative (Negative) U Benzodiazepines Scrn Positive H (Negative) Urine Cocaine Screen Negative (Negative) U Marijuana (THC) Screen Negative (Negative) Ethyl Alcohol ( - 10) mg/dL SARS-CoV-2 (PCR) Negative (Negative) Urine Dip Bedside Urine Glucose Negative Bedside Urine Bilirubin - Negative Bedside Urine Ketone - Negative Urine Specific Hamel 1.015 Bedside Urine Occult Blood - Negative Bedside Urine pH 6.5 Bedside Urine Protein - Negative Bedside Urine Urobilinogen - Negative Bedside Urine Nitrite - Negative Bedside Urine Leukocytes - Negative Esterase ECG Data Attestation: I personally reviewed and interpreted this ECG as follows: Interpretation: NSR, rate of 60, pr 178, qrs of 114, qtc 462. No acute ST changes appreciated. MDM Narrative Medical decision making narrative: Patient signed out to Dr. Malave for SBA UNDERWRITER eval when medically cleared for evaluation. <Gali Malave, DO - Last Filed: 01/21/21 17:18> Lab Data Attestation: I reviewed the patient's lab results. Labs: Lab Results 01/20/21 01/20/21 01/20/21 Range/Units 22:05 22:05 22:05 WBC 4.8 (4.5-11.0) X10^3/uL RBC 4.79 (4.5-5.9) X10^6/uL Hgb 13.8 (13.5-17.5) g/dL Hct 41.1 (41-53) % MCV 86.0 (80-100) fL MCH 28.8 (26-34) PG MCHC 33.5 (30-36) % RDW 13.4 (11.6-14.8) % Plt Count 239 (150-400) X10^3/uL Neut % (Auto) 43.1 L (50-75) % Lymph % (Auto) 43.4 H (25-40) % [place] % (Auto) 8.1 (3-14) % Eos % (Auto) 4.2 H (2-4) % Baso % (Auto) 1.2 (0-2) % Neut # (Auto) 2100 (7282-2198) /uL Lymph # (Auto) 2100 (3633-0579) /uL [place] # (Auto) 400 (0-900) /uL Eos # (Auto) 200 (0-450) /uL Baso # (Auto) 100 (0-100) /uL Sodium 139 (137-145) mmol/L Potassium 3.6 (3.4-5.1) mmol/L Chloride 105 (98-107) mmol/L Carbon Dioxide 28 (22-32) mmol/L BUN 13 (9-20) mg/dL Creatinine 0.71 (0.66-1.25) mg/dL Estimated GFR > 60.0 (>60) mL/min BUN/Creatinine Ratio 18.3 (6-22) Glucose 112 H (70-100) mg/dL Calcium 8.9 (8.4-10.2) mg/dL Total Bilirubin 0.2 (0.2-1.3) mg/dL AST 25 (17-59) IU/L ALT 13 (<50) IU/L Alkaline Phosphatase 45 (38-126) U/L Total Protein 7.1 (6.3-8.2) g/dL Albumin 4.3 (3.5-5.0) g/dL Globulin 2.8 (1.7-4.1) g/dL Albumin/Globulin Ratio 1.5 (1.0-2.8) TSH 1.68 (0.47-4.68) uIU/mL Free T4 1.28 (0.78-2.19) ng/dL Salicylates < 1.0 (<20) mg/dL U Opiates 300ng/mL cut (Negative) Ur Oxycodone Screen (Negative) Urine Methadone Screen (Negative) Acetaminophen < 10 L (10-30) ug/mL Ur Barbiturates Screen (Negative) U Tricyclic Antidepress (Negative) Ur Phencyclidine Scrn (Negative) Ur Amphetamines Screen (Negative) U Methamphetamines Scrn (Negative) Ur MDMA Scrn (Ecstasy) (Negative) U Benzodiazepines Scrn (Negative) Urine Cocaine Screen (Negative) U Marijuana (THC) Screen (Negative) Ethyl Alcohol < 10 ( - 10) mg/dL SARS-CoV-2 (PCR) (Negative) 01/21/21 01/21/21 Range/Units 00:05 00:20 WBC (4.5-11.0) X10^3/uL RBC (4.5-5.9) X10^6/uL Hgb (13.5-17.5) g/dL Hct (41-53) % MCV (80-100) fL MCH (26-34) PG MCHC (30-36) % RDW (11.6-14.8) % Plt Count (150-400) X10^3/uL Neut % (Auto) (50-75) % Lymph % (Auto) (25-40) % [place] % (Auto) (3-14) % Eos % (Auto) (2-4) % Baso % (Auto) (0-2) % Neut # (Auto) (0374-1508) /uL Lymph # (Auto) (8167-9513) /uL [place] # (Auto) (0-900) /uL Eos # (Auto) (0-450) /uL Baso # (Auto) (0-100) /uL Sodium (137-145) mmol/L Potassium (3.4-5.1) mmol/L Chloride (98-107) mmol/L Carbon Dioxide (22-32) mmol/L BUN (9-20) mg/dL Creatinine (0.66-1.25) mg/dL Estimated GFR (>60) mL/min BUN/Creatinine Ratio (6-22) Glucose (70-100) mg/dL Calcium (8.4-10.2) mg/dL Total Bilirubin (0.2-1.3) mg/dL AST (17-59) IU/L ALT (<50) IU/L Alkaline Phosphatase (38-126) U/L Total Protein (6.3-8.2) g/dL Albumin (3.5-5.0) g/dL Globulin (1.7-4.1) g/dL Albumin/Globulin Ratio (1.0-2.8) TSH (0.47-4.68) uIU/mL Free T4 (0.78-2.19) ng/dL Salicylates (<20) mg/dL U Opiates 300ng/mL cut Negative (Negative) Ur Oxycodone Screen Negative (Negative) Urine Methadone Screen Negative (Negative) Acetaminophen (10-30) ug/mL Ur Barbiturates Screen Negative (Negative) U Tricyclic Antidepress Negative (Negative) Ur Phencyclidine Scrn Negative (Negative) Ur Amphetamines Screen Negative (Negative) U Methamphetamines Scrn Negative (Negative) Ur MDMA Scrn (Ecstasy) Negative (Negative) U Benzodiazepines Scrn Positive H (Negative) Urine Cocaine Screen Negative (Negative) U Marijuana (THC) Screen Negative (Negative) Ethyl Alcohol ( - 10) mg/dL SARS-CoV-2 (PCR) Negative (Negative) Urine Dip Bedside Urine Glucose Negative Bedside Urine Bilirubin - Negative Bedside Urine Ketone - Negative Urine Specific [place] 1.015 Bedside Urine Occult Blood - Negative Bedside Urine pH 6.5 Bedside Urine Protein - Negative Bedside Urine Urobilinogen - Negative Bedside Urine Nitrite - Negative Bedside Urine Leukocytes - Negative Esterase MDM Narrative Medical decision making narrative: I received sign-out from Dr. Musa. I seen and evaluated patient myself. OR ban has evaluated patient and has arranged for outpatient services. At this time patient contracts for safety and will be discharged home. He is complaining of pain all over his body as he is withdrawing from [facility]. Discharge Plan Departure Patient Disposition: Home Clinical Impression: Suicidal ideation Overdose Qualifiers: Encounter type: initial encounter Injury intent: intentional self-harm Qualified Code(s): T50.902A - Poisoning by unspecified drugs, medicaments and biological substances, intentional self-harm, initial encounter Instructions: DI for Suicidal Ideation-Adult Activity Restrictions/Additional Instructions: *You have been diagnosed with overdose and suicidal ideation *What to do: You have been set up with outpatient follow-up If you are feeling suicidal or having suicidal thoughts: Call: Suicide Hotline: Visit: www.[employer].org Text: 470511 *Continue to take medications as directed *Follow up with your primary care provider in 2-3 days *Return to ER if you should have increasing thoughts of harming self, or any new, worsening or concerning symptoms Prescriptions: No Action diazepam [Valium] 5 mg tablet 2.5 mg PO BID PRN (Reason: anxiety) Qty: 15 RF: 0 Referrals: Tommy Herrera MD [Primary Care Provider] - Stand Alone Forms: Work Release Note
[2021-01-21 00:25] LABS: COVID19 -Nasal RAPID Negative (Negative)
[2021-01-21 00:48] LABS: UR Morphine/Opiate cutoff 300 Negative (Negative); Ur Creatinine Normal (Normal); Ur Specific Gravity Normal (Normal); Urine Amphetamines Negative (Negative); Urine Cocaine Negative (Negative); Urine Tetrahydrocannabinol Negative (Negative); Urine pH Normal (Normal)
[2021-01-21 00:49] LABS: Urine Barbiturates Negative (Negative); Urine Benzodiazepines Positive (Negative); Urine MDMA Negative (Negative); Urine Methadone Negative (Negative); Urine Methamphetamines Negative (Negative); Urine Oxycodone Negative (Negative); Urine Phencyclidine Negative (Negative); Urine Tricyclic Antidepressant Negative (Negative)
[2021-01-21] MEDS: ACETAMINOPHEN 325 MG TABLET 975 MG PO (05:56)
--- NOTE | 2021-01-21 10:08 | PC.NURSE ---
Pt woke up and is frustrated that he is here, asking when he can leave and when SUPERVISOR VENEER is coming to evaluate him. Pt is making vague statements such as just put me out of my misery.
--- NOTE | 2021-01-21 12:46 | PC.NURSE ---
Pt's called the nurses station and stated I know he doesn't want me to know anything but I needed to tell someone that he is currently texting me that he still wants to kill himself and is planning on leaving then killing himself. I passed this information on to WON Kimball his nurse
--- NOTE | 2021-01-21 12:54 | PC.NURSE ---
MONA/MATEUSZ Note: Pt. was yelling on the phone with mother on the line. Pt. is agitated he has to stay. Erick and CROWN ATTACHER. switched Pt. to RM13. Will continue to monitor 1:1. and IDA notified. potential flight risk.
--- NOTE | 2021-01-21 12:56 | PC.NURSE ---
called informing us of texts from patient stating he was going to kill self. This RN notified. Pt currently has phone at bedside.
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
--- NOTE | 2021-01-21 13:39 | CM.SWNOTE ---
GLASS BREAKER note Following assessment, Dr. Malave signs attestation form and GLASS BREAKER faxes form to [facility]. GLASS BREAKER contacts [facility] to request DCR dispatch. GLASS BREAKER is informs at 1339 that [facility] will dispatch DCR Paula to assess patient for FERNANDO. Pl: GLASS BREAKER will await contact from DCR Paula ARON Vera
--- NOTE | 2021-01-21 15:30 | PC.NURSE ---
Pt talking loudly on phone. Expresses his wishes to go home. Reports to be withdrawing from [facility]. aware. DSR on the way.
--- NOTE | 2021-01-21 16:44 | PC.NURSE ---
DCR in talking with PT. Pt dad is here in waiting room to see pt.
== END 2021-01-21 17:34 | disposition home or self-care (01) ==
PROVIDERS: Emergency Medicine; Emergency Provider Emergency Medicine; Family Provider Family Medicine; PCP Family Medicine
DX: T50.902A Poisoning by unspecified drugs, medicaments and biological substances, intentional self-harm, initial encounter (principal)
CPT/HCPCS: 36415; 80053; 80305; 80320; 80329; 81003; 84439; 84443; 85025; 87635; 93005; 99284; C9803; G0480

== ENCOUNTER 2023-01-01 09:40 | Emergency (ER) | payer OTHER, SELFPAY ==
--- NOTE | 2023-01-01 09:52 | DI.RAD.S_ITS ---
PROCEDURE: XR FOREARM LT 2V INDICATIONS: Pain/injury/dog bite TECHNIQUE: 2 views of the forearm were acquired. COMPARISON: None. FINDINGS: Bones: No fractures or dislocations. No suspicious bony lesions. Soft tissues: No suspicious soft tissue calcifications or masses. IMPRESSION: No visualized acute fracture or dislocation. However, if clinical concern and/or pain persist, short interval imaging followup in 7-10 days is recommended, as occult injury cannot be definitively excluded. Dictated by: Agnes Baer M.D. on 01/01/2023 at 11:23 Approved by: Agnes Baer M.D. on 01/01/2023 at 11:23
--- NOTE | 2023-01-01 09:53 | ED_ITS ---
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 He did use dog spray. Patient bitten on the left forearm. No active bleeding. Has puncture aguilar on the volar surface of the mid left forearm. There is edema. No red streaking. Patient is right-handed. Patient was bitten by a dog 5 years ago and had tetanus shot then. Patient in no distress. No numbness tingling or weakness. Patient denies any other injuries Related Data Previous Rx's Medication Instructions Recorded escitalopram oxalate 10 mg tablet 5 mg PO DAILY #30 tabs 11/15/22 (Lexapro) amoxicillin 875 mg-potassium 1 tab PO BID #14 tabs 01/01/23 clavulanate 125 mg tablet Allergies Allergy/AdvReac Type Severity Reaction Status Date / Time clonazepam AdvReac Severe I flew Verified 11/15/22 11:12 into a rage Review of Systems Review of Systems Narrative: GENERAL: negative chills, fatigue, malaise, fever, sweats. HEENT: negative sinus pain, ear pain, sore throat RESPIRATORY: negative dyspnea, cough CARDIOVASCULAR: negative chest pain, palpitations GASTROINTESTINAL: negative nausea, vomiting, abdominal pain : negative dysuria, frequency, hematuria MUSCULOSKELETAL: Positive muscle or bony pain SKIN: negative rash, skin lesions, positive skin injury NEUROLOGIC: negative weakness, numbness ROS Unobtainable: All systems reviewed & are unremarkable except as noted in HPI and below Patient History Medical History Acne Anxiety (~2017) Chicken pox (~1994) Depression (~2018) Dermatitis Skin rash Surgical History Anesthesia History of endoscopy Family History Father Hypertension Grandfather Lung cancer Social History Smoking Status: Current every day smoker Smoking Status: Current every day smoker alcohol intake frequency: holidays/special occasions only Substance Use Type: does not use Exam Narrative Exam Narrative: GENERAL: in no distress, not toxic not dyspneic HEAD: Normocephalic. EYES: Pupils equal round ENT: Mucous membranes moist. NECK: Trachea midline. EXTREMITIES: Examination left upper extremity elbow to fingertips exposed. 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 Elbow and wrist nontender. At mid volar forearm there to puncture wounds, superficial, nonbleeding, based visualized. No bone or muscle or tendon injury seen. Has full forearm supination pronation, able to flex and extend at elbow and wrist. No red streaking. There is mild/moderate edema/hematoma to the bite area. NEURO: AOx4. SKIN: Warm and dry PSYCH: Not anxious, is cooperative Initial Vital Signs Initial Vital Signs: Vital Signs Temperature 98.1 F 01/01/23 09:59 Pulse Rate 121 H 01/01/23 09:59 Respiratory Rate 20 01/01/23 09:59 Blood Pressure 143/95 H 01/01/23 09:59 Pulse Oximetry 96 01/01/23 09:59 Oxygen Delivery Method Room Air 01/01/23 09:59 Course Orders Ordered: Discontinued Medications Amoxicillin/Clavulanate Potassium (Amoxicillin/Clav 875/125 Mg) 1 tab PO NOW ONE Stop: 01/01/23 09:53 Last Admin: 01/01/23 10:19 Dose: 1 tab Documented By: DALIA Bacitracin (Bacitracin Oint 0.9 Gm Pckt) 1 applic TOP NOW ONE Stop: 01/01/23 10:14 Last Admin: 01/01/23 10:20 Dose: 1 applic Documented By: DALIA Ibuprofen (Ibuprofen 400 Mg Tablet) 800 mg PO NOW ONE Stop: 01/01/23 10:05 Last Admin: 01/01/23 10:20 Dose: 800 mg Documented By: DALIA Vital Signs Vital signs: Vital Signs - 8 hr 01/01/23 09:59 Temperature 98.1 F Pulse Rate 121 H Respiratory Rate 20 Blood Pressure 143/95 H Pulse Oximetry 96 Oxygen Delivery Method Room Air MDM - Animal Bite Imaging Data Extremity x-ray #1: Radiologist's Impression: PROCEDURE:? XR FOREARM LT 2V ? INDICATIONS:? Pain/injury/dog bite ? TECHNIQUE:? 2 views of the forearm were acquired.? ? COMPARISON:? None. ? FINDINGS:? ? Bones:? No fractures or dislocations.? No suspicious bony lesions.? ? Soft tissues:? No suspicious soft tissue calcifications or masses.? ? ? IMPRESSION:? No visualized acute fracture or dislocation. However, if clinical concern and/or pain persist, short interval imaging followup in 7-10 days is recommended, as occult injury cannot be definitively excluded. ? Dictated by: Agnes Baer M.D. on 01/01/2023 at 11:23 ? ? Approved by: Agnes Baer M.D. on 01/01/2023 at 11:23 ? [facility] Narrative Medical decision making narrative: Patient here with . 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 He did use dog spray. Patient bitten on the left forearm. No active bleeding. Has puncture aguilar on the volar surface of the mid left forearm. There is edema. No red streaking. Patient is right-handed. Patient was bitten by a dog 5 years ago and had tetanus shot then. Patient in no distress. No numbness tingling or weakness. Patient denies any other injuries After history and exam Augmentin wound care x-ray ordered, ice pack [facility] CC: Dog bite Complicating co-morbidities: None Data collected from: Patient and Medical records reviewed: Dog bite visit here 5 years ago Differential considered: Includes but not limited to dog bite/puncture wound/forearm fracture/contusion Exam documented above, pertinent findings include: Bite barb noted with edema Imaging studies independently reviewed: X-ray left forearm PROCEDURE:? XR FOREARM LT 2V ? INDICATIONS:? Pain/injury/dog bite ? TECHNIQUE:? 2 views of the forearm were acquired.? ? COMPARISON:? None. ? FINDINGS:? ? Bones:? No fractures or dislocations.? No suspicious bony lesions.? ? Soft tissues:? No suspicious soft tissue calcifications or masses.? ? ? IMPRESSION:? No visualized acute fracture or dislocation. However, if clinical concern and/or pain persist, short interval imaging followup in 7-10 days is recommended, as occult injury cannot be definitively excluded. ? Dictated by: Agnes Baer M.D. on 01/01/2023 at 11:23 ? ? Approved by: Agnes Baer M.D. on 01/01/2023 at 11:23 ? Treatments: Wound care/x-ray/Augmentin/ice pack Re-evaluations: Reviewed with patient results of x-ray and physical finding. Bleeding is controlled. Tetanus is up-to-date. Augmentin has been started. Not toxic at discharge. Return precautions reviewed with them. Patient states law enforcement was here to make report and the dog vaccination status unknown and possibly not up-to-date with rabies. However does not want to start rabies vaccine or immunoglobulin, he would like to pursue having the Adderall tested 1st. Wound care instructions reviewed with him. He desires discharge home Discussion: Appropriate for discharge home. Exam and imaging reassuring. Augmentin started here. Wound care instructions given return precautions reviewed. L and I work note completed Diagnosis: Dog bite Discharge Plan Departure Patient Disposition: Home Clinical Impression: Dog bite of extremity Instructions: DI for Dog Bite Activity Restrictions/Additional Instructions: Clean wound daily with warm soap and water and apply thin layer topical antibiotic. Please see family doctor within a week for re-evaluation of your bite wound. Please do continue antibiotic today and complete full course of antibiotics. May use cool pack to forearm 20 minutes at a time as needed for pain and swelling. May continue ibuprofen or Tylenol for pain. Return if worse if any questions or concerns if any fever or discharge from the wound or red streaking from the wound. Prescriptions: New amoxicillin-pot clavulanate 875-125 mg tablet 1 tab PO BID Qty: 14 0RF No Action escitalopram oxalate [Lexapro] 10 mg tablet 5 mg PO DAILY Qty: 30 1RF Rx Instructions: After 4 days if no side effects increase to 1 tab daily Referrals: Tommy Herrera MD [Primary Care Provider] - Stand Alone Forms: Patient Portal/API, Work Release Note
[2023-01-01 09:59] VITALS: BP 143/95; PULSE 121; RESP 20; TEMP 36.7; O2SAT 96; BMI 20.3
[2023-01-01] MEDS: AMOXICILLIN/CLAV 875/125 MG 1 TAB PO (10:19)
[2023-01-01] MEDS: IBUPROFEN 400 MG TABLET 800 MG PO (10:20)
[2023-01-01] MEDS: BACITRACIN OINT 0.9 GM PCKT 1 APPLIC TOP (10:20)
[2023-01-01 11:49] VITALS: BP 120/77; PULSE 83; RESP 20; O2SAT 95
== END 2023-01-01 11:51 | disposition home or self-care (01) ==
PROVIDERS: Emergency Provider Emergency Medicine; Family Provider Family Medicine; PCP Family Medicine; Referring Provider Emergency Medicine
DX: S51.852A Open bite of left forearm, initial encounter (principal); W54.0XXA Bitten by dog, initial encounter; Y99.0 Civilian activity done for income or pay
CPT/HCPCS: 73090; 99283; 99284

== ENCOUNTER → 2023-11-28 11:05 | Outpatient (CLI) | payer OTHER, SELFPAY ==
[2023-11-28 12:08] LABS: Add Manual Diff / Slide Review NO; Basophils Absolute Auto 0 /uL (0-100); Basophils Percent Auto 0.7 % (0-2); Eosinophils Absolute Auto 200 /uL (0-450); Eosinophils Percent Auto 3.7 % (2-4); Hematocrit 40.3 % (41-53); Hemoglobin 13.9 g/dL (13.5-17.5); Lymphocytes Absolute Auto 1200 /uL (1100-4500); Lymphocytes Percent Auto 23.1 % (25-40); Mean Corpuscular HGB Conc 34.5 % (30-36); Mean Corpuscular Hemoglobin 28.3 PG (26-34); Mean Corpuscular Volume 81.9 fL (80-100); Monocytes Absolute Auto 500 /uL (0-900); Monocytes Percent Auto 9.9 % (3-14); Neutrophils Absolute Auto 3300 /uL (1500-7000); Neutrophils Percent Auto 62.6 % (50-75); Platelet Count 249 X10^3/uL (150-400); Red Blood Cell Count 4.92 X10^6/uL (4.5-5.9); Red Cell Distribution Width 13.3 % (11.6-14.8); White Blood Cell Count 5.2 X10^3/uL (4.5-11.0)
[2023-11-28 12:24] LABS: Alanine Aminotransferase 17 IU/L (<50); Albumin 4.7 g/dL (3.5-5.0); Albumin Globulin Ratio 1.4 (1.0-2.8); Alkaline Phosphatase 39 U/L (38-126); Aspartate Aminotransferase 24 IU/L (17-59); Bilirubin Total 0.8 mg/dL (0.2-1.3); Blood Urea Nitrogen 14 mg/dL (9-20); Calcium 9.5 mg/dL (8.4-10.2); Carbon Dioxide 28 mmol/L (22-32); Chloride 98 mmol/L (98-107); Estimated Glomerular Filt Rate > 60 mL/min (>60); Globulin 3.3 g/dL (1.7-4.1); Glucose 97 mg/dL (70-100); HEMOLYSIS 16 (0-50); Potassium 3.8 mmol/L (3.4-5.1); Sodium 138 mmol/L (137-145)
[2023-11-28 12:52] LABS: TSH w/ Reflex to FT4 0.83 uIU/mL (0.47-4.68)
[2023-11-28 16:12] LABS: HIV 1 & 2 Ab/Ag 4th Gen Combo NEGATIVE (NEGATIVE); Hep C Virus Ab w/Reflex Quant NEGATIVE s/c (NEGATIVE)
== END ==
PROVIDERS: Family Provider Family Medicine; PCP Family Medicine; Referring Provider Physician Assistant; Visit Provider Physician Assistant
DX: R63.4 Abnormal weight loss (principal); F17.209 Nicotine dependence, unspecified, with unspecified nicotine-induced disorders
CPT/HCPCS: 36415; 80053; 84443; 85025; 86803; 87389

== ENCOUNTER → 2023-12-02 10:48 | Outpatient (CLI) | payer OTHER, SELFPAY ==
--- NOTE | 2023-12-02 10:49 | DI.RAD.S_ITS ---
PROCEDURE: FL BARIUM SWALLOW INDICATIONS: Difficulty swallowing solids COMPARISON: RF, UPPER GI AIR CONTRAST WITH KUB, 04/12/2016, 10:29. FINDINGS: Function: There is normal esophageal peristalsis. No elicited gastroesophageal reflux. There is normal transit of a calibrated barium tablet through the esophagus into the stomach. Morphology: Air-contrast images demonstrate normal mucosal morphology. Single contrast views show no esophageal strictures, extrinsic mass effects, or diverticula. Limited images of the stomach demonstrate normal appearance. IMPRESSION: Normal exam. No stricture. No ulcer demonstrated. Dictated by: Jim Rivera M.D. on 12/02/2023 at 12:57 Approved by: Jim Rivera M.D. on 12/02/2023 at 12:58
== END ==
PROVIDERS: Family Provider Family Medicine; PCP Family Medicine; Referring Provider Physician Assistant; Visit Provider Physician Assistant
DX: R13.10 Dysphagia, unspecified (principal); F41.9 Anxiety disorder, unspecified; F17.290 Nicotine dependence, other tobacco product, uncomplicated
CPT/HCPCS: 74220

== ENCOUNTER → 2024-01-23 15:37 | Outpatient (CLI) | payer OTHER, SELFPAY | PROVIDERS: Family Provider Family Medicine; PCP Family Medicine; Visit Provider Physician Assistant | DX: J02.9 Acute pharyngitis, unspecified (principal) | CPT/HCPCS: 87070; 87077; 87147 ==

== ENCOUNTER 2024-02-26 22:15 | Emergency (ER) | payer OTHER, SELFPAY ==
[2024-02-26 22:23] VITALS: BP 150/83; PULSE 85; RESP 18; TEMP 36.8; O2SAT 99; BMI 19.2
--- NOTE | 2024-02-26 22:45 | DI.RAD.S_ITS ---
PROCEDURE: XR HAND RT MIN 3V INDICATIONS: trauma TECHNIQUE: 3 views of the hand(s) acquired. COMPARISON: None. FINDINGS: Bones: No displaced fracture or dislocation. Soft tissues: No suspicious calcifications. IMPRESSION: No acute radiographic abnormality. If there is high concern for occult injury, consider repeat radiography or cross-sectional imaging. Dictated by: Tree Kim M.D. on 02/26/2024 at 23:32 Approved by: Tree Kim M.D. on 02/26/2024 at 23:33
--- NOTE | 2024-02-26 23:54 | ED_ITS ---
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 No other injuries. The glass did not shatter. He did have small cuts to right hand, right hand puncture, and small abrasion to left hand. He had some numbness to his palmar aspect right sided 2nd through 4th fingers, then tingling, improved. Last tetanus shot 3-4 years ago. Other Extremity Injury: Bilateral: hand Other injuries: none Context: direct blow Related Data Home Medications Medication Instructions Recorded Confirmed buprenorphine 8 mg-naloxone 2 mg 1 tab sublingual BID 01/14/23 02/20/24 sublingual tablet Previous Rx's Medication Instructions Recorded nicotine (polacrilex) 2 mg gum 2 mg buccal Q1H #100 ea 11/28/23 (Nicorette) omeprazole 20 mg capsule,delayed 20 mg PO DAILY #30 caps 11/28/23 release amoxicillin 500 mg tablet 500 mg PO BID #20 tabs 01/23/24 cephalexin 500 mg capsule 500 mg PO QID Hand wound 5 days 02/27/24 #20 caps Allergies Allergy/AdvReac Type Severity Reaction Status Date / Time clonazepam AdvReac Severe I flew Verified 02/20/24 10:27 into a rage Review of Systems Review of Systems Narrative: As per HPI Patient History Medical History Recent unexplained weight loss Vaping nicotine dependence, tobacco product Patellofemoral syndrome of right knee Skin rash Acne Depression (~2018) Chicken pox (~1994) Anxiety (~2017) Dermatitis Surgical History Anesthesia History of endoscopy Family History Father Hypertension Grandfather Lung cancer Social History marital status: number of children: 4 household members: spouse and children lives independently: Yes occupational status: employed Smoking Status: Former smoker alcohol intake: former substance use type: marijuana Smoking Status: Former smoker alcohol intake frequency: holidays/special occasions only Substance Use Type: does not use Exam Initial Vital Signs Initial Vital Signs: Vital Signs Temperature 98.2 F 02/26/24 22:23 Pulse Rate 85 02/26/24 22:23 Respiratory Rate 18 02/26/24 22:23 Blood Pressure 150/83 H 02/26/24 22:23 Pulse Oximetry 99 02/26/24 22:23 Oxygen Delivery Method Room Air 02/26/24 22:23 Const General: cooperative HENMT Head: normal to inspection HENMT Other: Atraumatic appearing face and scalp, moves jaw while, no anterior neck lesions, moves neck well Eyes General: Yes appearance normal, both eyes and all related structures Other: wearing glasses that appear nondamaged and intact Neck Neck: normal visual inspection Chest Chest: normal inspection of the chest Resp Effort & Inspection: normal respiratory effort Auscultation: clear to auscultation bilaterally Cardio Rate: regular rate GI Other: Abdomen is soft on palpation, no tenderness, no distention Other: exam deferred Back/Spine/Pelvis Back: normal to inspection Skin Other: Abrasions and puncture wounds to hands as per musculoskeletal physical exam section Extrem Other: Right hand 1st webspace with 2 cm superficial abrasion with small avulsion skin fragment, nonsuturable depth, not actively bleeding. Right hand with mid upper puncture wound over distal 3rd metacarpal, no palpable or visible glass shard foreign body obvious. No active bleeding, nonsuturable. Course Orders Ordered: ED Orders 02/26/24 22:45 XR hand RT min 3V Stat Discontinued Medications Bacitracin (Bacitracin Oint 0.9 Gm Pckt) 1 applic TOP NOW ONE Stop: 02/26/24 23:57 Last Admin: 02/26/24 23:59 Dose: 1 applic Documented By: VANDANA Cephalexin HCl (Cephalexin 250 Mg Capsule) 500 mg PO NOW ONE Stop: 02/26/24 23:58 Last Admin: 02/27/24 00:01 Dose: 500 mg Documented By: VANDANA Reevaluation(s) Reevaluation #1: X-ray performed to look for foreign body and also for any fractures, negative to my wet read. Reevaluation #2: Skin tag verbal request for nursing to snip his small string like avulsion skin fragment, to right 1st webspace hand, nonsuturable. Wound dressed subsequently with antibiotic ointment and nonstick dressing. Wound cleansed right palmar puncture site, no visible or palpable foreign bodies on examination, but penetration into deep space of the palm, at some increased risk of infection, we will cover with antibiotics. P.o. Keflex dose. Tetanus up-to-date. Follow up with PCP for wound check in the next couple of days, prescription for further Keflex antibiotic for 7 days. Nonsuturable minor left linear abrasion hand, normal range of motion, no x-ray of that side taken. Wound check 2 days as above. Stable, improved. Vital Signs Vital signs: Vital Signs - 8 hr 02/26/ 00:08 Temperature 97.9 F Pulse Rate 78 Respiratory Rate 20 Blood Pressure 148/83 H Pulse Oximetry 97 Oxygen Delivery Method Room Air Discharge Plan Departure Patient Disposition: Home Clinical Impression: Laceration of upper extremity, Laceration of hand, Injury of Hand Activity Restrictions/Additional Instructions: Window sill blunt injury to both hands, as window in its sill within its tracks down onto both hands, nonsuturable laceration to the right 1st webspace, with small skin tag avulsion that was removed prior to wound cleansing antibiotic ointment. Puncture wound to palmar aspect right hand, no obvious foreign body. Left hand nonsuturable linear abrasion cleaned and dressed. X-rays right hand without obvious fractures. Puncture wound concerning for possible deep tissue hand infection, 1st dose antibiotic to help prevent infection was given in the emergency department, prescription sent to pharmacy. Take antibiotics as directed. Tetanus status reportedly up-to-date. Numbness to right fingers reported, likely from the contusion, no no deficit motor function obvious. This likely represents contusion to the nerve, hopefully will heal over time. Wound check advised with your regular provider in 2 days. Prescriptions: New cephalexin 500 mg capsule 500 mg PO QID 5 Days Qty: 20 0RF No Action buprenorphine-naloxone 8-2 mg tablet, sublingual 1 tab sublingual BID nicotine (polacrilex) [Nicorette] 2 mg gum 2 mg buccal Q1H Qty: 100 0RF Rx Instructions: 2 mg PO q1-2h x6wk, then q2-4h x3wk, then q4-8h x3wk; Start: on cigarette quit day; Max: 24 pieces/24h; Info: use >9 pieces/day during initial 6wk; avoid food/drink 15min before and after use omeprazole 20 mg capsule,delayed release(DR/EC) 20 mg PO DAILY Qty: 30 1RF amoxicillin 500 mg tablet 500 mg PO BID Qty: 20 0RF Referrals: Tommy Herrera MD [Primary Care Provider] - Stand Alone Forms: Patient Portal/API, Work Release Note
[2024-02-26] MEDS: BACITRACIN OINT 0.9 GM PCKT 1 APPLIC TOP (23:59)
[2024-02-27] MEDS: cephALEXin 250 MG CAPSULE 500 MG PO (00:01)
[2024-02-27 00:08] VITALS: BP 148/83; PULSE 78; RESP 20; TEMP 36.6; O2SAT 97
== END 2024-02-27 00:16 | disposition home or self-care (01) ==
PROVIDERS: Emergency Provider Emergency Medicine; Family Provider Family Medicine; PCP Family Medicine
DX: S61.411A Laceration without foreign body of right hand, initial encounter (principal); W25.XXXA Contact with sharp glass, initial encounter
CPT/HCPCS: 73130; 99283

== ENCOUNTER 2024-02-28 11:42 | Day surgery (SDC) | payer OTHER, SELFPAY ==
--- NOTE | 2024-02-28 | PATH_ITS ---
[facility] Accession Number: [id number] No. of containers..01 Tissue . 01 Material submitted: . esophagus - ESOPHAGUS BIOPSY . 01 Diagnosis: ESOPHAGUS BIOPSY: Squamous mucosa with no diagnostic alterations. Eosinophils are not increased. STO 03/06/2024 1131 Local . 01 Electronically signed: . Chiki Cueto MD, Pathologist NPI- [id number] . 01 Gross description: . ESOPHAGUS BIOPSY: Received in formalin are 2 fragment(s) of alvarado, soft tissue measuring 0.2 x 0.1 x 0.1 cm to 0.3 x 0.3 x 0.2 cm submitted entirely in 1 cassette(s) /KIMBER 03/06/2024 1131 Local . 01 Pathologist provided ICD-10: K21.9 . 01 CPT . 317385 Specimen Comment: A courtesy copy of this report has been sent to [phone] Performed at: 01 [facility] [address] [place] [address] Suite [facility], [place], [place] [id number] MD Chiki Cueto MD Phone: [phone]
[2024-02-28 12:06] VITALS: BP 142/87; PULSE 75; RESP 16; TEMP 36.7; O2SAT 99
[2024-02-28] MEDS: LACTATED RINGERS 1,000 ML 42 ML IV (12:06)
--- NOTE | 2024-02-28 12:42 | PM.PREOP ---
Pre-operative Note Interval Note History & Physical reviewed/Exam performed by Physician: Yes Changes to H&P: No
--- NOTE | 2024-02-28 12:52 | PM.OP.EGD ---
Operative Date/Time/Diagnoses Date of procedure: 02/28/24 Time of procedure: 12:52 Pre-op diagnosis: Esophageal dysphagia Procedure & Clinicians Study performed: Diagnostic esophagogastroduodenoscopy Same procedure as scheduled: Yes Indications: Esophageal dysphagia Surgeon: Simeon Michele Procedure Notes Procedure in detail: The history and physical was performed/updated and the patient is ASA class is 2. The procedure was discussed in detail with the patient. Potential risks complications including infection, bleeding, missed diagnosis, perforation, need for surgery, and were explained. Their questions were answered and informed consent was obtained. Patient placed in supine position. Time out was performed. Procedural sedation was administered by Anesthesia. A bite block was placed. the scope was inserted into the mouth and advanced through the esophagus and into the stomach. The pylorus was intubated and the duodenum was examined to the 2nd portion. The scope was then withdrawn into the stomach and was retroflexed. The stomach was decompressed and scope was withdrawn slowly through the esophagus. -multiple biopsies of esophagus taken with forceps. FINDINGS -no esophageal stricture -deep linear furrows of the esophagus suggestive of eosinophilic esophagitis The patient tolerated the procedure well and will be discharged when they meet criteria. Specimen(s): other (Esophagus) Impression: Esophagitis Post-procedure Plan for aftercare: Follow up on biopsies Disposition: same day surgery
[2024-02-28 12:55] VITALS: BP 120/91; PULSE 75; RESP 13; TEMP 36.3; O2SAT 97
[2024-02-28 13:00] VITALS: BP 107/74; PULSE 74; RESP 12; O2SAT 98
[2024-02-28 13:05] VITALS: BP 108/75; PULSE 66; RESP 14; O2SAT 98
[2024-02-28 13:06] VITALS: BP 118/64; PULSE 67; RESP 12; O2SAT 100
== END 2024-02-28 13:12 | disposition home or self-care (01) ==
PROVIDERS: Family Provider Family Medicine; PCP Family Medicine; Referring Provider Surgery; Visit Provider Surgery
PROC: 0DJ08ZZ Inspection of Upper Intestinal Tract, Via Natural or Artificial Opening Endoscopic (ICD-10-PCS; CPT 43235; principal; 2024-02-28 12:30)
DX: R13.10 Dysphagia, unspecified (principal)
CPT/HCPCS: 43239; J2704

== ENCOUNTER → 2025-02-09 15:50 | Outpatient (CLI) | payer OTHER, SELFPAY ==
--- NOTE | 2025-02-09 15:52 | DI.CT.S_ITS ---
PROCEDURE: CT SOFT TISSUE NECK W CON INDICATIONS: Throat irritation TECHNIQUE: After the administration of intravenous contrast, 3.0 mm axial sections acquired from the sella to the aortic arch. Additional oblique axial 3.0 mm sections acquired through the pharynx. 3 mm thick coronal and sagittal reformats were generated. For radiation dose reduction, the following was used: automated exposure control. COMPARISON: None. FINDINGS: Image quality: Excellent. Lymph nodes: No enlarged lymph nodes seen throughout the neck. Vessels: Visualized vasculature appears patent. Neck spaces: The oropharynx, nasopharynx, and pharynx demonstrate no mucosal lesions. The vocal cords, false vocal cords, pyriform sinuses, epiglottis, vallecula, and tongue base all appear normal. Extramucosal spaces appear unremarkable. Glands: The parotid and submandibular glands appear normal. Thyroid gland demonstrates no significant abnormality. Miscellaneous: Visualized brain and orbits appear normal. Lung apices appear clear. Superficial soft tissues appear normal. Bones: No suspicious bony lesions. Visualized sinuses and mastoids appear unremarkable. IMPRESSION: No abnormalities are identified within the neck. No cause for patient's symptoms is identified. Dictated by: Donovan Gallagher M.D. on 02/10/2025 at 11:02 Approved by: Donovan Gallagher M.D. on 02/10/2025 at 11:04
== END ==
PROVIDERS: Family Provider Family Medicine; PCP Family Medicine; Referring Provider Family Medicine; Visit Provider Family Medicine
DX: R13.19 Other dysphagia (principal)
CPT/HCPCS: 70491; Q9967

== ENCOUNTER → 2025-03-08 12:18 | Outpatient (CLI) | payer OTHER, SELFPAY ==
--- NOTE | 2025-03-08 12:19 | DI.RAD.S_ITS ---
PROCEDURE: FL BARIUM SWALLOW INDICATIONS: Swallowing difficulty COMPARISON: [facility], CT, CT SOFT TISSUE NECK W CON, 02/09/2025, 16:04. [facility], RF, FL BARIUM SWALLOW, 12/02/2023, 11:12. FINDINGS: Function: Mild spontaneous esophageal reflux to the level of the midthoracic esophagus is present with mildly abnormal contraction and relaxation of the distal thoracic esophagus. There is no evidence of achalasia or a significant hiatal hernia. There is normal transit of a calibrated barium tablet through the esophagus into the stomach. Morphology: Air-contrast images demonstrate normal mucosal morphology. Single contrast views show no esophageal strictures, extrinsic mass effects, or diverticula. Limited images of the stomach demonstrate normal appearance. IMPRESSION: Mild spontaneous esophageal reflux to the level of the midthoracic esophagus with corresponding esophageal dysmotility. No evidence of a chalasia or a significant hiatal hernia. Dictated by: Arun Miller M.D. on 03/08/2025 at 13:00 Approved by: Arun Miller M.D. on 03/08/2025 at 13:02
== END ==
PROVIDERS: Family Provider Family Medicine; PCP Family Medicine; Referring Provider Family Medicine; Visit Provider Family Medicine
DX: R13.19 Other dysphagia (principal); K21.9 Gastro-esophageal reflux disease without esophagitis; K12.0 Recurrent oral aphthae
CPT/HCPCS: 74220

== ENCOUNTER → 2025-05-03 13:25 | Outpatient (CLI) | payer OTHER, SELFPAY ==
[2025-05-03 14:33] LABS: Alanine Aminotransferase 69 IU/L (<50); Albumin 4.6 g/dL (3.5-5.0); Albumin Globulin Ratio 1.5 (1.0-2.8); Alkaline Phosphatase 64 U/L (38-126); Blood Urea Nitrogen 9 mg/dL (9-20); Calcium 9.0 mg/dL (8.4-10.2); Carbon Dioxide 25 mmol/L (22-32); Chloride 106 mmol/L (98-107); Estimated Glomerular Filt Rate > 60 mL/min (>60); Globulin 3.0 g/dL (1.7-4.1); Glucose 100 mg/dL (70-99); HEMOLYSIS 16 (0-50); Potassium 4.1 mmol/L (3.4-5.1); Sodium 138 mmol/L (137-145); Total Protein 7.6 g/dL (6.3-8.2)
[2025-05-03 14:34] LABS: Add Manual Diff / Slide Review NO; Hematocrit 40.7 % (41-53); Hemoglobin 14.4 g/dL (13.5-17.5); Lymphocytes Absolute Auto 900 /uL (1100-4500); Mean Corpuscular HGB Conc 35.5 % (30-36); Mean Corpuscular Hemoglobin 28.8 PG (26-34); Mean Corpuscular Volume 81.1 fL (80-100); Platelet Count 218 X10^3/uL (150-400)
[2025-05-06 04:08] LABS: ANA Screen, IFA Negative (.)
== END ==
PROVIDERS: Family Provider Family Medicine; PCP Family Medicine; Referring Provider Family Medicine; Visit Provider Family Medicine
DX: L30.9 Dermatitis, unspecified (principal); R13.19 Other dysphagia; M62.81 Muscle weakness (generalized)
CPT/HCPCS: 36415; 80053; 85025; 85651; 86038; 86140

== ENCOUNTER 2025-05-11 12:46 | Outpatient (RCR) | payer OTHER, SELFPAY ==
--- NOTE | 2025-05-11 14:07 | ST.OPIE ---
Visit Care Team Role Provider Type SESAR Francisco Other Providers Speech Therapist Specialty: Speech Therapy Address: Phone: Fax: Email: Tommy Herrera MD Attending Provider Physician Family Provider Primary Care Provider Referring Provider Specialty: Family Practice Address: [address] [place] [address], [id number] Email: [email or web address] Speech-Language Pathology Initial Evaluation MUSIC ASSISTANT Clinical Swallow Evaluation Start: 05/11/25 13:40 Freq: Status: Active Protocol: Document 05/11/25 13:40 MM (Rec: 05/11/25 14:07 MM Desktop) Clinical Swallow Evaluation Session Time Visit Start Time 13:00 Visit Stop Time 13:30 Total Visit Minutes 30 Visit Information Visit Number initial evaluation Plan of Care Dates 05/11/2025-08/11/2025 pending MBSS results Insurance [employer]; no pre-auth;no copay;$2000 deductible satisfied Information 2024;max 50 PT/OT/ST Referral Referring Provider Tommy Herrera MD Reason for Referral R13.19 other dysphagia Setting Assessment Location Outpatient Care Patient Information Identification Type Name History Pt is a 34 yo male who presented to [facility] Speech Therapy on 05/11/2025 at the referral of Dr. Herrera for evaluation of swallowing. Pt reported c/o globus sensation with solid foods and pills that began ~1.5 years ago. Pt's baseline diet is regular solid foods and thin liquids, although he has a preference for softer foods as these are easier to swallow without difficulty. Pt denied hx of neurological issues/dx such as TBI or CVA as well as respiratory issues such as PNA or COPD. Pt reported dx of GERD. Pt also has PMH of depression and anxiety. Pt reported he has participated in x2 upper endoscopies, flexible laryngoscopy, esophagram, and neck CT which have only been conclusive for mild reflux and suggestive of eosinophilic esophagitis. Pt reported an episode of TMJ pain (pain when opening jaw, feeling as if jaw was stuck) that occurred ~2 years ago and resolved spontaneously after ~1 month, after which his swallowing difficulty began. Subjective Pt arrived on time to initial evaluation unaccompanied. Observations Pt was cooperative, engaged, and pleasant throughout the evaluation. Reported by Patient/Caregiver Other Symptoms Difficulty swallowing pills,Difficulty swallowing solids,Food gets stuck,Pain on swallowing Comment Pt reported a lump feeling in his throat after swallowing solids and pills, feeling like it goes down slow and gets stuck and like the muscles/sphincter are not opening. Pt reported utilizing compensatory strategies such as slowing down, taking small bites, eating softer foods, alternating solids with liquids, utilizing multiple swallows, chewing food well in order to facilitate bolus clearance from pharyngoesophageal area. Pt reported he breaks his pills in half before taking them with water. Current Diet Regular (IDDSI 7) Baseline Feeding Independent in self-feeding Method Type of Patient Eating Assessment Tool-10 (EAT-10) Questionnaire (e.g., EAT-10, MDADI, etc. ) Results Pt completed the Eating Assessment Tool-10 (EAT-10), a patient reported outcome measure used to assess swallowing difficulty, or dysphagia. It consists of 10 questions that explore how swallowing issues affect a pt's daily life, including the physical and emotional challenges they experience. Pt's rate the severity of their swallowing difficulties on a scale of 0 (no problem) to 4 (severe problem). A total score of 25 was reported, including x5 ratings of 4; scores of 3 or higher are abnormal and may indicate problems with swallowing efficiency or safety which would benefit from further assessment via instrumental evaluation ( MBSS). The IDDSI Framework Protocol: IDDSI.1 Objective Assessment Mental Status Alert,Responsive,Cooperative Oral Integrity WFL Lip Function Within normal limits Tongue Function Within normal limits Jaw Function Within normal limits Hard/Soft Palate Within normal limits Function Respiratory Within normal limits Sufficiency Comment Oral mechanism exam revealed adequate natural dentition , oral health, and cranial nerves grossly intact bilaterally. Vocal quality appropriate for age/sex. No baseline cough observed prior to PO trials. Pt breathing comfortably on room air. Food and Liquid Trials Position During Upright (90 degrees) Assessment Liquids Trialed Thin (IDDSI 0) Solid Trials Purred (IDDSI 4),Soft & Bite-sized (IDDSI 6),Regular ( IDDSI 7) Administration Type Cup single sip,Cup consecutive sips,Self-feeding Oral Impairment Within normal limits Oral Phase Comments Pt observed across trials of thin liquids (3 oz of water via cup), puree (x3 tsp of apple sauce), soft/ bite sized (x3 tsp of diced peaches), and regular solids (x2 mariel crackers). Pt exhibited adequate bolus retrieval from cup and tsp, oral containment, bolus manipulation, and oral clearance across PO trials . Pharyngeal Phase No overt signs/symptoms of aspiration noted. Globus Comments sensation reported with soft/bite sized trials and regular solid trials, noted to be worse with regular solid trials. Pt required multiple swallows and liquid wash to clear globus sensation. Fatigue/Endurance Endurance WNL [place] Swallow Yes Protocol Results Passed; no overt signs/symptoms of aspiration. The IDDSI Framework Protocol: IDDSI.1 Findings Swallowing Function Oral phase WFL. Unable to rule out pharyngeal phase Comments dysphagia without MBSS. Prognosis Good Based on Cognitive status,Age Impact on Safety and No limitations Functioning Recommendations Instrumental Yes Assessment Recommended Solids Regular (IDDSI 7) Recommended Liquids Thin (IDDSI 0) Other Based on clinical swallow evaluation and pt report, Recommendations there is concern for possible pharyngeal phase dysphagia given presence of globus sensation with more solid foods and pills. Recommend further evaluation with use of imaging via MBSS to confirm/rule out presence of pharyngeal phase dysphagia. OP ST tx services may be warranted pending results of MBSS. Recommend continuing baseline diet of regular solids and thin liquids with efficient swallowing strategies ( small bites, slow rate, chew food well, alternate bites with sips, multiple swallows) and medications as tolerated/preferred by pt pending MBSS. This is supported by p's pulmonary stability on room air, ambulatory status, independence for feeding/oral care, CNE/OME WFL, and intact cognitive linguistic skills. Pt verbalized understanding and agreement with ST recommendations. MD notified re: request for MBSS orders. Safety Precautions/ Small bites and sips when eating,Slow rate; swallow Swallowing between bites,Multiple swallows,Alternate liquids and Recommendations solids Medication As Tolerated Recommendations Education Patient/Caregiver Described results of evaluation,Patient expressed Education understanding of evaluation,Patient expressed agreement with goals & treatment plans,Patient expressed understanding of feeding recommendations Goals Short-term Goals STG1: Pt will complete MBSS to guide POC. Long-term Goals LTG: Pt will consume the safest and most efficient least restrictive diet with no clinical signs/symptoms of dysphagia in order to meet nutrition/hydration needs and improve overall quality of life.
--- NOTE | 2025-05-11 14:09 | ST.OPPOC ---
Physical, Occupational & Speech Therapy At [facility] Visit Care Team Role Provider Type SESAR Francisco Other Providers Speech Therapist Address: Phone: Fax: Tommy Herrera MD Attending Provider Physician Family Provider Primary Care Provider Referring Provider Address: [address] [place] [address], [id number] Speech Pathology Plan of Care Plan of Care Dates 05/11/2025-08/11/2025 pending MBSS results Referring Provider Tommy Herrera MD Patient History Pt is a 34 yo male who presented to [facility] Speech Therapy on 05/11/2025 at the referral of Dr. Herrera for evaluation of swallowing. Pt reported c/o globus sensation with solid foods and pills that began ~1.5 years ago. Pt's baseline diet is regular solid foods and thin liquids, although he has a preference for softer foods as these are easier to swallow without difficulty. Pt denied hx of neurological issues/dx such as TBI or CVA as well as respiratory issues such as PNA or COPD. Pt reported dx of GERD. Pt also has PMH of depression and anxiety. Pt reported he has participated in x2 upper endoscopies, flexible laryngoscopy, esophagram, and neck CT which have only been conclusive for mild reflux and suggestive of eosinophilic esophagitis. Pt reported an episode of TMJ pain (pain when opening jaw, feeling as if jaw was stuck) that occurred ~2 years ago and resolved spontaneously after ~1 month, after which his swallowing difficulty began. Short-term Goals STG1: Pt will complete MBSS to guide POC. Long-term Goals LTG: Pt will consume the safest and most efficient least restrictive diet with no clinical signs/symptoms of dysphagia in order to meet nutrition/hydration needs and improve overall quality of life. Comment: Electronically Signed by: SESAR Francisco 05/11/25 0745 If you are in agreement with this Plan of Care, please return a signed and dated copy. I have reviewed this Plan of Care and certify that the skilled therapy services above are required to meet the patient?s needs. Physician Signature Date Printed Name and Credentials Clinical Instructor Signature Printed Name and Credentials
--- NOTE | 2025-08-18 15:44 | ST.OPDS ---
Visit Care Team Role Provider Type SESAR Francisco Other Providers Speech Therapist Address: Phone: Fax: Tommy Herrera MD Attending Provider Physician Family Provider Primary Care Provider Referring Provider Address: [address] [place] [address], [id number] NANOTECHNOLOGY TECHNICIAN Treatment Note NANOTECHNOLOGY TECHNICIAN Treatment Note Start: 05/11/25 13:40 Freq: Status: Active Protocol: Document 08/18/25 15:41 MM (Rec: 08/18/25 15:44 MM Desktop) Speech Pathology Treatment Note Visit Information Plan of Care Dates 05/11/2025-08/11/2025 pending MBSS results Visit Type Note Type Discharge Summary General Information Patient History Pt is a 34 yo male who presented to [facility] Speech Therapy on 05/11/2025 at the referral of Dr. Herrera for evaluation of swallowing. Pt reported c/o globus sensation with solid foods and pills that began ~1.5 years ago. Pt's baseline diet is regular solid foods and thin liquids, although he has a preference for softer foods as these are easier to swallow without difficulty. Pt denied hx of neurological issues/dx such as TBI or CVA as well as respiratory issues such as PNA or COPD. Pt reported dx of GERD. Pt also has PMH of depression and anxiety. Pt reported he has participated in x2 upper endoscopies, flexible laryngoscopy, esophagram, and neck CT which have only been conclusive for mild reflux and suggestive of eosinophilic esophagitis. Pt reported an episode of TMJ pain (pain when opening jaw, feeling as if jaw was stuck) that occurred ~2 years ago and resolved spontaneously after ~1 month, after which his swallowing difficulty began. Subjective Observations/Patient Pt account d/c. Presentation Objective Treatment Activities Pt account d/c. Assessment Assessment of Pt is a 34 yo male who was seen for a clinical swallow Improvement evaluation on 05/11/2025. A MBSS was recommended. MBSS order obtained. ST attempted to f/u with pt multiple times to schedule MBSS. MBSS has not been scheduled at this time. POC on 08/11/2025. Pt account d/c at this time d/t MBSS not scheduled and POC . Pt will need to obtain a new referral to speech therapy should MBSS be completed and services be warranted pending MBSS results. Plan Therapy Discharge from Speech Therapy Recommendations
== END 2025-08-19 09:51 | disposition home or self-care (01) ==
LOC: SP 12:46
PROVIDERS: Family Provider Family Medicine; PCP Family Medicine; Referring Provider Family Medicine; Visit Provider Family Medicine
DX: R13.19 Other dysphagia (principal); K21.9 Gastro-esophageal reflux disease without esophagitis
CPT/HCPCS: 92610

== ENCOUNTER → 2025-05-27 14:58 | Outpatient (CLI) | payer OTHER, SELFPAY ==
[2025-05-27 15:55] LABS: Alanine Aminotransferase 14 IU/L (<50); Albumin 4.2 g/dL (3.5-5.0); Albumin Globulin Ratio 1.6 (1.0-2.8); Alkaline Phosphatase 48 U/L (38-126); Blood Urea Nitrogen 13 mg/dL (9-20); Calcium 9.2 mg/dL (8.4-10.2); Carbon Dioxide 28 mmol/L (22-32); Chloride 104 mmol/L (98-107); Estimated Glomerular Filt Rate > 60 mL/min (>60); Globulin 2.7 g/dL (1.7-4.1); Glucose 94 mg/dL (70-99); HEMOLYSIS < 15 (0-50); Potassium 4.0 mmol/L (3.4-5.1); Sodium 139 mmol/L (137-145); Total Protein 6.9 g/dL (6.3-8.2)
[2025-05-27 16:25] LABS: TSH w/ Reflex to FT4 0.60 uIU/mL (0.47-4.68)
[2025-05-28 03:08] LABS: Hepatitis A Antibody IgM Negative (Negative); Hepatitis B Core Antibody IgM Negative (Negative); Hepatitis C Antibody Non Reactive (Non Reactive)
[2025-05-30 05:36] LABS: ANA Screen, IFA Negative (.)
== END ==
PROVIDERS: Family Provider Family Medicine; PCP Family Medicine; Referring Provider Family Medicine; Visit Provider Family Medicine
DX: R74.8 Abnormal levels of other serum enzymes (principal)
CPT/HCPCS: 36415; 80053; 80074; 84443; 86015; 86038

== ENCOUNTER → 2025-07-15 14:48 | Outpatient (CLI) | payer OTHER, SELFPAY | PROVIDERS: Family Provider Family Medicine; PCP Family Medicine; Referring Provider Family Medicine; Visit Provider Family Medicine | DX: R06.02 Shortness of breath (principal); R06.09 Other forms of dyspnea; R06.2 Wheezing; Z87.891 Personal history of nicotine dependence | CPT/HCPCS: 94060; 94726; 94729 ==

== ENCOUNTER → 2025-08-17 16:54 | Outpatient (CLI) | payer OTHER, SELFPAY ==
[2025-08-17 17:43] LABS: Creatine Kinase 111 U/L (55-170)
== END ==
PROVIDERS: Family Provider Family Medicine; PCP Family Medicine; Referring Provider Family Medicine; Visit Provider Family Medicine
DX: K22.4 Dyskinesia of esophagus (principal); L30.9 Dermatitis, unspecified
CPT/HCPCS: 36415; 82550